=== PATIENT | female | born 1980 | race Caucasian/White ===

== ENCOUNTER → 2019-10-09 | Outpatient (CLI) | payer SELFPAY ==
[2019-10-09 09:09] VITALS: BMI 43.9
[2019-10-11 22:37] LABS: HPV Reflexed? NOT INDICATED
== END | disposition home or self-care (01) ==
LOC: LABSPEC 09:41
PROVIDERS: PCP Family Medicine; Referring Provider Family Medicine; Visit Provider Family Medicine
DX: Z13.9 Encounter for screening, unspecified (principal)
CPT/HCPCS: 88175; G0145

== ENCOUNTER → 2020-04-01 | Outpatient (CLI) | payer SELFPAY ==
[2020-04-01 09:15] VITALS: BMI 43.9
[2020-04-01 12:56] LABS: AST(SGOT) 37 U/L (15-37); Alanine Aminotransfer ALT/SGPT 61 U/L (13-56); Albumin, Serum 3.8 g/dL (3.2-5.0); Alkaline Phosphatase 80 U/L (45-117); Anion Gap 7 (5-15); BUN 11 mg/dL (7-18); BUN/Creat Ratio 14.2 RATIO (10-20); Chloride 103 mmol/L (98-107); Cholesterol 209 mg/dL (200); Creatinine, Serum 0.78 mg/dL (0.55-1.02); EST Glomerular Filtration Rate 87 mL/min (>60); Est Glom Filt Rate - Afr Amer 106 mL/min (>60); Glucose 88 mg/dL (74-106); High Density Lipoprotein 43 mg/dL; Potassium 4.1 mmol/L (3.5-5.1); Protein, Total 7.8 g/dL (6.4-8.2); Sodium Level 137 mmol/L (136-145); Thyroid Stim Hormone (TSH) 1.51 uIU/mL (0.358-3.74); Triglycerides 151 mg/dL; Very Low Density Lipoprotein 30 mg/dL (5-40)
== END | disposition home or self-care (01) ==
PROVIDERS: PCP Family Medicine; Referring Provider Family Medicine; Visit Provider Family Medicine
DX: E66.9 Obesity, unspecified (principal)
CPT/HCPCS: 36415; 80053; 80061; 84443

== ENCOUNTER → 2020-12-07 10:44 | Outpatient (CLI) | payer SELFPAY ==
[2020-11-11 09:39] VITALS: BMI 43.5
--- NOTE | 2020-12-07 10:49 | BI_ITS ---
MAMMOGRAPHY - BILATERAL SCREENING 3-D TOMOSYNTHESIS REASON FOR EXAM: Female, 40 years old. screening PERTINENT HISTORY: No significant family history. TECHNIQUE: 2-D mammograms and 3-D Tomosynthesis of the breast (s) were performed. CAD was performed. COMPARISON: None. Baseline examination. FINDINGS: The breast composition is composed of scattered fibroglandular density. Scattered benign calcifications are seen. No dense spiculated masses or suspicious microcalcifications are identified. No architectural distortion is identified. There is no skin thickening or retraction. BI/SCRN MAMM (CAD)W/JASMYN BILAT IMPRESSION: No mammographic signs of malignancy. Routine yearly mammograms recommended. ASSESSMENT CATEGORY: BIRADS Category 1: Negative. A letter regarding these results will be sent to the patient by the facility within 30 days. FOLLOW UP RECOMMENDATION: Yearly follow up mammogram recommended. (A) Approximately 10% of breast cancers are not detected by mammography. A normal mammogram should not delay biopsy of a clinically suspicious abnormality. Electronically Signed: Jong Saldaña MD at 11:55 EDT , Service support ,
== END ==
PROVIDERS: PCP Family Medicine; Referring Provider Family Medicine; Visit Provider Family Medicine
DX: Z12.31 Encounter for screening mammogram for malignant neoplasm of breast (principal)
CPT/HCPCS: 77063; 77067

== ENCOUNTER → 2022-11-09 | Outpatient (CLI) | payer SELFPAY ==
[2022-11-09 16:41] LABS: Absolute Neutrophil Count 4.2 X10^3/uL (2.0-7.7); Basophil# 0.04 X10^3/uL; Basophil% 0.5 % (0-1); Eosinophil# 0.54 X10^3/uL; Eosinophils% 6.6 % (0-5); Hematocrit 40.8 % (37-47); Hemoglobin 13.8 g/dL (12.0-15.0); Lymphocyte % 35.2 % (19-41); Mean Corp Hgb Conc 33.8 g/dL (32-36); Mean Corpuscular Hgb 28.3 pg (27.0-32.0); Mean Corpuscular Volume 83.8 fL (81-99); Monocyte# 0.58 X10^3/uL; NRBC Flagged by Analyzer 0 % (0-5); Neutrophil # 4.15 X10^3/uL (2.7-7.7); Neutrophil % 50.5 % (47-70); Platelet Count 268 K/mm3 (150-450); RBC Distribution Width CV 13.7 % (11.6-14.6); RBC Distribution Width SD 41.9 fl (35.1-43.9); Red Blood Count 4.87 M/mm3 (4.2-5.4); White Blood Count 8.2 K/mm3 (4.4-11.0)
[2022-11-09 17:04] LABS: ALB/GLOB Ratio 0.9 RATIO (0.9-2.4); AST(SGOT) 46 U/L (15-37); Alanine Aminotransfer ALT/SGPT 71 U/L (13-56); Albumin, Serum 3.8 g/dL (3.2-5.0); Alkaline Phosphatase 79 U/L (45-117); Anion Gap 3 (5-15); BUN 12 mg/dL (7-18); BUN/Creat Ratio 16.4 RATIO (10-20); Chloride 105 mmol/L (98-107); Cholesterol 224 mg/dL (200); Creatinine, Serum 0.73 mg/dL (0.55-1.02); EST Glomerular Filtration Rate 93 mL/min (>60); Est Glom Filt Rate - Afr Amer 112 mL/min (>60); Globulin 4.1 g/dL (2.2-4.2); Glucose 89 mg/dL (74-106); High Density Lipoprotein 41 mg/dL; Potassium 3.6 mmol/L (3.5-5.1); Protein, Total 7.9 g/dL (6.4-8.2); Sodium Level 135 mmol/L (136-145); Thyroid Stim Hormone (TSH) 1.41 uIU/mL (0.358-3.74); Triglycerides 213 mg/dL; Very Low Density Lipoprotein 43 mg/dL (5-40)
== END | disposition home or self-care (01) ==
LOC: BIMLAB 15:15
PROVIDERS: PCP Family Medicine; Referring Provider Nurse Practitioner Family; Visit Provider Nurse Practitioner Family
DX: Z00.00 Encounter for general adult medical examination without abnormal findings (principal); F32.9 Major depressive disorder, single episode, unspecified
CPT/HCPCS: 36415; 80053; 80061; 84443; 85025

== ENCOUNTER → 2022-12-14 | Outpatient (CLI) | payer SELFPAY ==
[2022-12-14 12:49] LABS: Anion Gap 7 (5-15); BUN 13 mg/dL (7-18); BUN/Creat Ratio 17.3 RATIO (10-20); Calcium,Total 9.3 mg/dL (8.5-10.1); Chloride 104 mmol/L (98-107); Creatinine, Serum 0.75 mg/dL (0.55-1.02); EST Glomerular Filtration Rate 90 mL/min (>60); Est Glom Filt Rate - Afr Amer 109 mL/min (>60); Glucose 95 mg/dL (74-106); Sodium Level 139 mmol/L (136-145)
== END | disposition home or self-care (01) ==
PROVIDERS: PCP Family Medicine; Referring Provider Nurse Practitioner Family; Visit Provider Nurse Practitioner Family
DX: I10 Essential (primary) hypertension (principal)
CPT/HCPCS: 36415; 80048

== ENCOUNTER → 2023-06-14 | Outpatient (CLI) | payer SELFPAY ==
--- NOTE | 2023-06-14 08:17 | BI_ITS ---
MAMMOGRAPHY - BILATERAL SCREENING REASON FOR EXAM: Female, 43 years old. Routine annual screening examination. PERTINENT HISTORY: Non-contributory. TECHNIQUE: Digital bilateral breast jasmyn (3D mammographic acquisition) in the CC and MLO projections. 2-D mediolateral oblique (MLO) and craniocaudad (CC) views of both breasts were obtained. CAD: Full Field Digital Mammography with Computer Added Detection was performed. COMPARISON: Comparison is made with prior study dated December 07, 2020. FINDINGS: Breast Composition: There are scattered areas of fibroglandular density. There are no dominant masses or suspicious calcifications. Stable benign appearing bilateral axillary lymph nodes. No other significant abnormalities are identified. There has been no significant change since the prior study. BI/SCRN MAMM (CAD)W/JASMYN BILAT IMPRESSION: Stable bilateral screening mammogram. Yearly follow-up mammogram recommended. (A) ASSESSMENT CATEGORY: BIRADS Category 2: Benign. A letter regarding these results will be sent to the patient by the facility within 30 days. Approximately 10% of breast cancers are not detected by mammography. A normal mammogram should not delay biopsy of a clinically suspicious abnormality. [id number] Electronically Signed: Isauro Maradiaga MD at 14:22 EST ,
== END | disposition home or self-care (01) ==
PROVIDERS: PCP Family Medicine; Referring Provider Family Medicine; Visit Provider Family Medicine
DX: Z12.31 Encounter for screening mammogram for malignant neoplasm of breast (principal)
CPT/HCPCS: 77063; 77067

== ENCOUNTER → 2023-11-29 | Outpatient (CLI) | payer SELFPAY ==
[2023-11-29 12:57] LABS: ALB/GLOB Ratio 0.9 RATIO (0.9-2.4); AST(SGOT) 22 U/L (15-37); Alanine Aminotransfer ALT/SGPT 32 U/L (13-56); Albumin, Serum 3.7 g/dL (3.2-5.0); Alkaline Phosphatase 65 U/L (45-117); Anion Gap 7 (5-15); BUN 13 mg/dL (7-18); BUN/Creat Ratio 16.8 RATIO (10-20); Calcium,Total 9.1 mg/dL (8.5-10.1); Chloride 104 mmol/L (98-107); Cholesterol 224 mg/dL (200); Creatinine, Serum 0.77 mg/dL (0.55-1.02); EST Glomerular Filtration Rate 86 mL/min (>60); Est Glom Filt Rate - Afr Amer 104 mL/min (>60); Globulin 4.1 g/dL (2.2-4.2); Glucose 100 mg/dL (74-106); High Density Lipoprotein 51 mg/dL; Potassium 4.1 mmol/L (3.5-5.1); Protein, Total 7.8 g/dL (6.4-8.2); Sodium Level 137 mmol/L (136-145); Triglycerides 146 mg/dL; Very Low Density Lipoprotein 29 mg/dL (5-40)
== END | disposition home or self-care (01) ==
LOC: BIMLAB 08:59
PROVIDERS: PCP Family Medicine; Visit Provider Family Medicine
DX: I10 Essential (primary) hypertension (principal)
CPT/HCPCS: 36415; 80053; 80061

== ENCOUNTER → 2024-05-28 | Outpatient (CLI) | payer BC, SELFPAY ==
[2024-06-03 14:09] LABS: HPV APTIMA, High Risk Negative (Negative)
== END | disposition home or self-care (01) ==
LOC: LABSPEC 09:39
PROVIDERS: PCP Family Medicine; Referring Provider Family Medicine; Visit Provider Family Medicine
DX: Z01.419 Encounter for gynecological examination (general) (routine) without abnormal findings (principal)
CPT/HCPCS: 87624; 88142

== ENCOUNTER → 2024-06-26 | Outpatient (CLI) | payer BC, SELFPAY ==
--- NOTE | 2024-06-26 10:05 | BI_ITS ---
MAMMOGRAPHY - BILATERAL SCREENING REASON FOR EXAM: Female, 44 years old. Routine annual screening examination. PERTINENT HISTORY: Non-contributory. TECHNIQUE: Digital bilateral breast jasmyn (3D mammographic acquisition) in the CC and MLO projections. 2-D mediolateral oblique (MLO) and craniocaudad (CC) views of both breasts were obtained. CAD: Full Field Digital Mammography with Computer Added Detection was performed. COMPARISON: Comparison is made with prior study dated June 14, 2023 and December 07, 2020. FINDINGS: Breast Composition: There are scattered areas of fibroglandular density. There are no dominant masses or suspicious calcifications. Stable small bilateral axillary lymph nodes. No other significant abnormalities are identified. There has been no significant change since the prior study. BI/SCRN MAMM (CAD)W/JASMYN BILAT IMPRESSION: Stable bilateral screening mammogram. Yearly follow-up mammogram recommended. (A) ASSESSMENT CATEGORY: BIRADS Category 2: Benign. A letter regarding these results will be sent to the patient by the facility within 30 days. Approximately 10% of breast cancers are not detected by mammography. A normal mammogram should not delay biopsy of a clinically suspicious abnormality. [id number] Electronically Signed: Isauro Maradiaga MD at 10:58 EST ,
== END | disposition home or self-care (01) ==
PROVIDERS: PCP Family Medicine; Referring Provider Family Medicine; Visit Provider Family Medicine
DX: Z12.31 Encounter for screening mammogram for malignant neoplasm of breast (principal)
CPT/HCPCS: 77063; 77067

== ENCOUNTER → 2024-11-26 | Outpatient (CLI) | payer BC, SELFPAY ==
[2024-11-26 13:16] LABS: ALB/GLOB Ratio 1.2 RATIO (0.9-2.4); AST(SGOT) 30 U/L (<=31); Alanine Aminotransfer ALT/SGPT 34 U/L (<=34); Albumin, Serum 4.4 g/dL (3.5-5.0); Alkaline Phosphatase 77 U/L (35-104); Anion Gap 12 (5-15); BUN 14 mg/dL (4-19); Calcium,Total 9.6 mg/dL (7.6-11.0); Carbon Dioxide 25.3 mmol/L (21.0-32.0); Chloride 102 mmol/L (98-108); Cholesterol 247 mg/dL (<=200); EST Glomerular Filtration Rate 93 (>60); Globulin 3.6 g/dL (2.2-4.2); Glucose 99 mg/dL (70-99); High Density Lipoprotein 49 mg/dL; Low Density Lipoprotein Calc. 169 mg/dL; Potassium 4.6 mmol/L (3.3-5.1); Sodium Level 140 mmol/L (133-145); Total Bilirubin 0.55 mg/dL (0.00-1.30); Triglycerides 144 mg/dL; Very Low Density Lipoprotein 29 mg/dL (5-40); cholesterol:hdl ratio screen 5.01
== END | disposition home or self-care (01) ==
LOC: BIMLAB 09:28
PROVIDERS: PCP Family Medicine; Visit Provider Family Medicine
DX: E78.5 Hyperlipidemia, unspecified (principal); I10 Essential (primary) hypertension
CPT/HCPCS: 36415; 80053; 80061

== ENCOUNTER → 2025-05-23 | Outpatient (CLI) | payer BC, SELFPAY ==
[2025-05-23 11:21] LABS: Cholesterol 141 mg/dL (<=200); Low Density Lipoprotein Calc. 78 mg/dL; Triglycerides 104 mg/dL; Very Low Density Lipoprotein 21 mg/dL (5-40); cholesterol:hdl ratio screen 3.23
== END | disposition home or self-care (01) ==
LOC: LAB 10:13
PROVIDERS: PCP Family Medicine; Referring Provider Family Medicine; Visit Provider Family Medicine
DX: E78.5 Hyperlipidemia, unspecified (principal)
CPT/HCPCS: 36415; 80061

== ENCOUNTER 2025-06-27 06:27 | Day surgery (SDC) | payer BC, SELFPAY ==
[2025-06-27] VITALS (8 sets, daily range): BP systolic 100–126; BP diastolic 59–82; PULSE 71–90; RESP 12–18; TEMP 36.6–37.2; O2SAT 97–100; BMI 43.7
--- OUTSIDE RECORDS SUMMARY | 2025-06-27 06:30 | XMS RPT_ITS | CCD ---
Author Organization [facility] ion Partnership [facility] Care Team Providers Care Customer Development Manager Name Role Phone Dr. Bob Marcano Primary Care Provider [phone] Dr. Bob Marcano Referring Provider [phone] Rosa PLANT MAINTENANCE TECHNICIAN, JAIC Kt Attending Provider [phone] Dr. Bob Marcano Primary Care Provider [phone] Dr. Bob Marcano Attending Provider [phone] Dr. Bob Marcano Referring Provider [phone] Dr. Bob Marcano DO Primary Care Provider [phone] Dr. Bob Marcano DO Attending Provider [phone] Dr. Bob Marcano DO Referring Provider [phone] Bob Marcano Primary Care Unavailable Bob Marcano Attending Unavailable Bob Marcano Primary Care Unavailable Bob Marcano Attending Unavailable Jeet, Bob Ferrer Referring Unavailable Jeet, Bob R Referring Unavailable Brown, Bob R Primary Care Unavailable Brown, Bob R Attending Unavailable Jeet, Bob R Referring Unavailable Brown, Bob R Primary Care Unavailable BrownBob R Attending Unavailable Jeet, Bob R Primary Care Unavailable Brown, Bob R Attending Unavailable Bob Marcano Referring Unavailable Medications Current Medications Medication Drug Class(es) Dates Sig (Normalized) Sig (Original) [id number] 200 actuat albuterol 0.09 mg/actuat metered dose inhaler (12 sources) beta2-Adrenergic Agonist Start: 10-09-2019 End: 11-09-2022 Albuterol Sulfate (Ventolin Hfa) 90 mcg/actuation HFA aerosol inhaler Active 2 NMA INHALATION EVERY 6 HOURS as needed for shortness of breath or wheezing 8.November 09, 2022 3:11pm Start: 10-09-2019 End: 11-09-2022 take 1 puff(s) by inhalation every six hours Albuterol Sulfate (Ventolin Hfa) 90 mcg/actuation HFA aerosol inhaler Discontinued 2 PUFF INHALATION EVERY 6 HOURS 8.5 October 11, 2019 10:26am November 09, 2022 2:11pm Start: 11-02-2015 End: 09-19-2019 Albuterol Sulfate 1 PUFF inh aler Discontinued 2 NMA INHALATION EVERY 6 HOURS NEEDED as needed for Shortness Of Breath November 02, 2015 12:00am September 19, 2019 4:19pm Start: 11-02-2015 End: 09-19-2019 take 1 puff(s) by inhalation every six hours as needed Albuterol Sulfate Discontinued 2 PUFF INHALATION EVERY 6 HOURS NEEDED November 01, 2015 11:00pm September 19, 2019 3:19pm hydroCHLOROthiazide 12.5 mg / lisinopril 20 mg oral tablet (8 sources) Thiazide Diuretic, Angiotensin Converting Enzyme Inhibitor Start: 05-30-2023 End: 09-03-2024 Lisinopril-Hydrochlorothiazi de 20-12.5 mg tablet Active 1 {tbl} PO DAILY September 03, 2024 9:25am Start: 05-30-2023 take 1 tablet by el th once daily Lisinopril-Hydrochlorothiazide Active 1 TABLET PO DAILY May 30, 2023 12:00am Start: 11-23-2022 End: 05-30-2023 Lisinopril-Hydrochlorothiazi de 10-12.5 mg tablet Discontinued 1 {tbl} PO DAILY November 23, 2022 11:14am May 30, 2023 4:35pm Start: 11-23-2022 End: 05-30-2023 take 1 tablet by mouth once daily Lisinopril-Hydrochlorothiazide Discontin ued 1 TABLET PO DAILY November 23, 2022 10:14am May 30, 2023 3:35pm Completed/Discontinued Medications Medication Drug Class(es) Dates Sig (Normalized) Sig (Original) nitrofurantoin, macrocrystals 25 mg / nitrofurantoin, monohydrate 75 mg oral capsule (6 sources) Nitrofuran Antibacterial Start: 09-19-2019 End: 09-24-2019 take 1 capsule by mouth every twelve hours at mealtime Nitrofurantoin Monohyd/M-Cryst (Macrobid) 100 mg capsule Discontinued 100 mg PO Q12H 10 5 September 19, 2019 1:00am September 23, 2019 1:00am September 24, 2019 1:09am must administer with a meal/food Start: 09-19-2019 End: 10-09-2019 take 1 capsule by mouth twice daily at mealtime Nitrofurantoin Monohyd/M-Cryst (Macrobid) 100 mg capsule Discontinued 100 mg PO TWICE A DAY 10 September 19, 2019 1:00am October 09, 2019 9:04am must administer with a meal/food phenazopyridine hydrochloride 95 mg oral tablet (3 sources) Start: 09-19-2019 End: 10-09-2019 take 1 tablet by mouth three times daily as needed Phenazopyridine (Azo Urinary Pain Relief) 95 mg tablet Discontinued 95 mg PO THREE TIMES A DAY as needed September 19, 2019 1:00am October 09, 2019 9:04am sertraline 100 mg oral tablet (20 sources) Serotonin Reuptake Inhibitor Start: 11-02-2015 End: 09-03-2024 take 1 tablet by mouth once daily Sertraline 100 mg tablet Discontinued 100 mg PO DAILY October 19, 2022 11:40am May 30, 2023 4:42pm Problems Active Problems Problem Classification Problem Date Documented Da te Episodic/Chronic Disorders of lipid metabolism (3 sources) Dyslipidemia; Translations: [Hyperlipidemia, unspecified] Onset: 12-02-2024 11-26-2024 Chronic Essential hypertension (5 sources) Hypertensive disorder; Translations: [Essential (primary) hypertension] Onset: 11-26-2024 12-14-2022 Chronic Mood disorders (6 sources) Depressive disorder; Translations: [Depression] 04-01-2020 Chronic Other nutritional; endocrine; and metabolic disorders (3 sources) Body mass index 30+ - obesity; Translations: [Obesity, unspecified] 04-01-2020 Chronic Residual codes; unclassified (2 sources) Family history of cancer of colon; Translations: [Family history of malignant neoplasm of digestive organs] 11-26-2024 Episodic Unclassified (2 sources) Family history of colon cancer requiring screening colonoscopy; Translations: [Z80.0 - Family history of malignant neoplasm of digestive organs] Urinary tract infections (3 sources) Urinary tract infectious disease; Translations: [Urinary tract infection, site not specified] 09-19-2019 Episodic Past or Other Problems Problem Classification Problem Date Documented Da te Episodic/Chronic Other screening for suspected conditions (not mental disorders or infectious disease) (1 source) Encounter for screening mammogram for malignant neoplasm of breast; Translations: [Encounter for screening mammogram for malignant neoplasm of breast] Onset: 07-25-2024 Episodic Residual codes; unclassified (1 source) Family history of malignant neoplasm of digestive organs; Translations: [Family history of malignant neoplasm of digestive organs] Onset: 11-26-2024 Episodic Results Test Name Value Interpretation Reference Range Facility Internal Medicine Office Vis iton 05-27-2025 Internal Medicine Office Visit [facility] Internal Medicine [address] [place] [address] [place] [address] OFFICE VISIT Date of Service: 05/27/25 MR#: [id number] Acct: [id number] Name: KAILYNJESSICA ESCALANTEYEL Rep #: [id number] : 1980 Provider: Dr. Bob de anda, DO Age/Sex: 45/F [place] [facility] Status: Signed Intake Vital Signs 11/26/24 09:02 05/27/25 09:17 Height 5 ft 3 in 5 ft 3 in Weight: 240 lb 6 oz 242 lb BMI 42.5 42.8 BP 140/82 H 134/82 H Blood Pressure Location Lt brachial Lt brachial Position Sitting Sitting Respiration 16 16 Pulse 98 79 Pulse Source Monitor Monitor Temp 96.7 F L 98.2 F Temp Source Temporal Temporal Pulse Oximetry (%) 98 98 Oxygen Delivery Method room air room air Intake Visit Reasons: 6 M FU Chief Complaint: Routine 6-month recheck. Stock Feeder Required: No Is patient in pain?: No Allergies No Known Allergies Allergy (Verified 05/27/25 09:07) Medications ???Medication ???Instructions ???Recorded ???Confirmed ???Type albuterol sulfate 90 mcg/actuation 2 puff inhalation Q6H PRN 05/27/25 Rx aerosol inhaler (Ventolin HFA) shortness of breath or wheezing #8.5 grams atorvastatin 20 mg tablet (Lipitor) 20 mg PO QDAY #90 tabs 05/27/25 05/27/25 Rx lactobacillus combination no.4 3 3,000 mmu cells PO QDAY 05/27/25 1 07/27/24 History billion cell capsule (Probiotic) lisinopril 20 1 tab PO DAILY #90 tabs 05/27/25 1 07/27/24 Rx mg-hydrochlorothiaz henrique 12.5 mg tablet multivitamin 1 tab PO QAM 05/27/25 05/27/25 His tory sertraline 100 mg tablet 100 mg PO DAILY #90 TABLETS 05/27/25 Rx Nurse's Note: Pt needs refills on zoloft and albuterol inhaler. Pt was told by Dr. petersen office she did not need a colonoscopy until 2025 so she has not scheduled. Pt states that in the past 6 months she has been extra gassy and had mucus. Pt states there is more often than not mucus in stool too. Pt wonders if this is attributed from statin. Pt denies change in color, odor, texture, or frequency. Denies abdominal pain, cramping, nausea/vomiting PFSH Medical History HTN (hypertension) Encounter for preventative adult health care examination Anxiety and depression Asthma Surgical History History of colonoscopy History of History of tonsillectomy Family History Father Colon cancer Hypertension Other Anxiety and depression Social History Smoking Status: Never smoker alcohol intake: never substance use type: does not use what type of physical activity do you participate in: walking frequency: daily Female Reproductive History Menstrual Duration of menses: <3 days control method: other HPI HPI Chief Complaint: Routine 6-month recheck. Details: JESSICA AVINA, is a 45 F who presents to the office today for a recheck physical exam. Her lipids were up and she was started on a statin and she is here for the results of that. She is still struggling with her daughter who has to be homeschooled because of a diagnosis of POTS syndrome. She has been having some stools with mucus in her stools. When I referred her for a colonoscopy they said it was not time for routine colonoscopy. ROS Const Constitutional: No body ache, chills, excessive sweating, fatigue, fever(s), frequent falls, headache(s), snoring, weakness, sleep problems or change in appetite Eyes Eyes: No blurry vision, change in vision, eye pain or Light sensitivity ENT ENT: No abnormal hearing, ear or mastoid pain, tinnitus, nasal congestion, headache(s), neck pain or sore throat Resp Respiratory: No cough, shortness of breath, snoring or wheezing Cardio Cardiology: No chest pain at rest, chest pain with exertion, excessive sweating, shortness of breath, dyspnea on exertion, lightheadedness, orthopnea or palpitations Gastro GI: Positive for excessive flatus; No abdominal pain, change in bowel habits, constipation, cramping, diarrhea, nausea/dyspepsia, vomiting or other Genitourinary-Femal e: No burning urination, painful urination, urinary incontinence, urinary frequency, abnormal vaginal bleeding or pelvic pain Musc Musculoskeletal: No abnormal gait, joint pain, back pain, limited range of motion, neck pain or numbness Skin Skin: No dry skin, redness, lesions, itchy eyes, rash or wounds Neuro Neurology: No abnormal gait, abnormal hearing, weakness, frequent falls, headache(s), memory loss or numbness Psych Psychiatric: No anxiety, No change in appetite, No depression, No memory loss an (more content not included)... Normal [facility] Lipid Profileon 05-23-2025 CHOL:HDL 3.23 Normal [facility] Comment on above: Performed By: #### L 754.1342 #### [facility] [address] [place], [place], [id number] Cholesterol [Mass/Vol] 141 mg/dL Normal <=200 [facility] Comment on above: Result Comment: Chol esterol level, Desirable <200 mg/dL Borderline high cholesterol 200-239 mg/dL High cholesterol >=240 mg/dL Recommendations of the NCEP Adult Treatment Panel for the following risk-cutoff thresholds for the [place] population. Performed By: #### L 500.4100 #### [facility] [address] [place], [address] Cholesterol in HDL [Mass/Vol] 44 mg/dL Normal [facility] Comment on above: Result Comment: Bonnie onal Cholesterol Education Program (NCEP) guidelines: <40 mg/dL: Low HDL-cholesterol (major risk factor for CHD) >= 60 mg/dL: High HDL-cholesterol (negative risk factor for CHD) HDL-cholesterol is affected by a number of factors, e.g. smoking, exercise, hormones, sex and age. Performed By: #### L 500.4100 #### [facility] [address] [place], [address] Cholesterol in LDL [Mass/Vol] 78 mg/dL Normal [facility] Comment on above: Result Comment: Bord cgrise=952-402 mg/dL Higher Napf=195 mg/dL or greater Singh Equation 2020 for LDL-C Performed By: #### L 500.4100 #### [facility] [address] [place], [address] Cholesterol in VLDL [Mass/Vol] 21 mg/dL Normal 5-40 [facility] Comment on above: Performed By: #### L 500.4100 #### [facility] [address] [place], [address] Triglyceride [Mass/Vol] 104 mg/dL Normal [facility] Comment on above: Result Comment: The drugs N-Acetylcysteine and Metamizole may falsely depress this assay. Normal range: <150 mg/dL Borderline High: 150-199 mg/dL High: 200-499 mg/dL Very High: >500 mg/dL Performed By: #### L 500.4100 #### [facility] [address] [place], [address] Anion gap in Serum or Plasma Ordered By: Bob Marcano on 11-26-2024 Anion gap [Moles/Vol] 12 mmol/L 5-15 [facility] BUN/creatinine ratioOrdered By: Bob Marcano on 11-26-2024 Urea nitrogen/Creatinine [Mass ratio] 17.0 mg/mg 10-20 [facility] Bilirubin, totalOrdered By: Bob Marcano on 11-26-2024 Bilirubin [Mass/Vol] 0.55 mg/dL 0.00-1.30 [facility] Calculated very low density lipoprotein (VLDL) cholesterol measurementOrdered By: Bob Marcano on 11-26-2024 Calculated very low density lipoprotein (VLDL) cholesterol measurement 29 mg/dL 5-40 [facility] Carbon dioxide, total [Moles /volume] in Central venous bloodOrdered By: Bob Marcano on 11-26-2024 CO2 [Moles/Vol] 25.3 mmol/L 21.0-32.0 [facility] Chloride assayOrdered By: Do laura Marcano on 11-26-2024 Chloride [Moles/Vol] 102 mmol/L 98-108 [facility] Comprehensive Metabolic Prof ilon 11-26-2024 Albumin [Mass/Vol] 4.4 g/dL Normal 3.5-5.0 [facility] Comment on above: Performed By: #### L 500.4100, L500.4050 #### [facility] [address] [place], [address] Albumin/Globulin [Mass ratio] 1.2 {ratio} Normal 0.9-2.4 [facility] Comment on above: Performed By: #### L 500.4100, L500.4050 #### [facility] [address] [place], [address] ALK PHOS 77 U/L Normal 35-104 [facility] Comment on above: Performed By: #### L 500.4100, L500.4050 #### [facility] [address] [place], [address] ALT [Catalytic activity/Vol] 34 U/L Normal <=34 [facility] Comment on above: Performed By: #### L 500.4100, [id number] #### [facility] [address] [place], [address] AST [Catalytic activity/Vol] 30 U/L Normal <=31 [facility] Comment on above: Performed By: #### L 500.4100, [id number] #### [facility] [address] [place], [address] Bilirubin [Mass/Vol] 0.55 mg/dL Normal 0.00-1.30 [facility] Comment on above: Performed By: #### L 500.4100, L500.4050 #### [facility] [address] [place], [address] BUN/CRE 17.0 RATIO Normal 10-20 [facility] Comment on above: Performed By: #### L 500.4100, L500.4050 #### [facility] [address] [place], [address] Calcium [Mass/Vol] 9.6 mg/dL Normal 7.6-11.0 [facility] Comment on above: Performed By: #### L 500.4100, [id number] #### [facility] [address] [place], [address] Chloride [Moles/Vol] 102 mmol/L Normal 98-108 [facility] Comment on above: Performed By: #### L 500.4100, L500.4050 #### [facility] [address] [place], [address] CO2 [Moles/Vol] 25.3 mmol/L Normal 21.0-32.0 [facility] Comment on above: Performed By: #### L 500.4100, L500.4050 #### [facility] [address] [place], [address] Creatinine [Mass/Vol] 0.80 mg/dL Normal 0.70-1.20 [facility] Comment on above: Performed By: #### L 500.4100, L500.4050 #### [facility] [address] [place], [address] GAP 12 Normal 5-15 [facility] Comment on above: Performed By: #### L 500.4100, L500.4050 #### [facility] [address] [place], [address] GFR/1.73 sq M.predicted among non-blacks MDRD (S/P/Bld) [Vol rate/Area] 93 mL/min/{1.73_m2} Normal >60 [facility] Comment on above: Result Comment: mL/m in/1.73m2 CKD-EPI Creatinine Equation (2020) Performed By: #### L 500.4100, L500.4050 #### [facility] [address] [place], [address] Globulin (S) [Mass/Vol] 3.6 g/dL Normal 2.2-4.2 [facility] Comment on above: Performed By: #### L 500.4100, L500.4050 #### [facility] [address] [place], [address] Glucose [Mass/Vol] 99 mg/dL Normal 70-99 [facility] Comment on above: Performed By: #### L 500.4100, L500.4050 #### [facility] [address] [place], [address] Potassium [Moles/Vol] 4.6 mmol/L Normal 3.3-5.1 [facility] Comment on above: Performed By: #### L 500.4100, L500.4050 #### [facility] [address] [place], [address] Sodium [Moles/Vol] 140 mmol/L Normal 133-145 [facility] Comment on above: Performed By: #### L 500.4100, L500.4050 #### [facility] [address] [place], [address] T PROT 8.0 g/dL Normal 5.9-8.4 [facility] Comment on above: Performed By: #### L 500.4100, [id number] #### [facility] [address] [place], [address] Urea nitrogen [Mass/Vol] 14 mg/dL Normal 4-19 [facility] Comment on above: Performed By: #### L 500.4100, [id number] #### [facility] [address] [place], [address] Glomerular filtration rate ( GFR) estimation/1.73 sq m using serum, plasma, or whole bOrdered By: Bob Marcano on 11-26-2024 GFR/1.73 sq M.predicted among non-blacks MDRD (S/P/Bld) [Vol rate/Area] 93 mL/min/{1.73_m2} >60 [facility] Comment on above: mL/min/1.73m2 CKD-EP I Creatinine Equation (2020) Internal Medicine Office Vis frances 11-26-2024 Internal Medicine Office Visit [facility] [address] [place], [place] [address] OFFICE VISIT Date of Service: 11/26/24 MR#: [id number] Acct: [id number] Name: JESSICA AVINA Rep #: [id number] : 1980 Provider: Dr. Bob de anda, DO Age/Sex: 44/F [place] [facility] Status: Signed Intake Vital Signs 05/28/24 09:07 11/26/24 09:02 Height 5 ft 3 in 5 ft 3 in Weight: 237 lb 4 oz 240 lb 6 oz BMI 42.0 42.5 BP 124/82 H 140/82 H Blood Pressure Location Lt brachial Lt brachial Position Sitting Sitting Respiration 16 16 Pulse 102 H 98 Pulse Source Monitor Monitor Temp 97.2 F L 96.7 F L Temp Source Temporal Temporal Pulse Oximetry (%) 99 98 Oxygen Delivery Method room air room air Intake Visit Reasons: 6 M FU Chief Complaint: 6 M FU Stock Feeder Required: No Accompanied by: Self Is patient in pain?: No Allergies No Known Allergies Allergy (Verified 11/26/24 09:01) Medications ???Medication ???Instructions ???Recorded ???Confirmed ???Type albuterol sulfate 90 mcg/actuation 2 puff inhalation Q6H PRN 11/26/24 Rx aerosol inhaler (Ventolin HFA) shortness of breath or wheezing #8.5 grams lisinopril 20 1 tab PO DAILY #90 tabs 09/03/24 0 11/26/24 Rx mg-hydrochlorothiaz henrique 12.5 mg tablet sertraline 100 mg tablet 100 mg PO DAILY #90 tabs 09/03/24 11/26/24 Rx Have you fallen in the past year?: No PFSH Medical History HTN (hypertension) Encounter for preventative adult health care examination Anxiety and depression Asthma Surgical History History of colonoscopy History of History of tonsillectomy Family History Father Colon cancer Hypertension Other Anxiety and depression Social History Smoking Status: Never smoker alcohol intake: never substance use type: does not use what type of physical activity do you participate in: walking frequency: daily Female Reproductive History Menstrual Duration of menses: <3 days control method: other HPI HPI Chief Complaint: 6 M FU Details: JESSICA AVINA, is a 44 F who presents to the office today for his 6-month checkup so she can have her medications renewed especially her sertraline. She has a lot of challenges in life she has a daughter with dysautonomia and she struggles helping her cope with those challenges. Other than that she feels well she says it has been almost 10 years since she had a colonoscopy and with her father's history of colorectal cancer she wants another screening colonoscopy. ROS Const Constitutional: No body ache, excessive sweating, fatigue, fever(s), frequent falls, headache(s), snoring, weakness, weight change, sleep problems or change in appetite Eyes Eyes: No blurry vision, change in vision, eye pain or Light sensitivity ENT ENT: No abnormal hearing, ear or mastoid pain, tinnitus, nasal congestion, headache(s), neck pain or sore throat Resp Respiratory: No cough, shortness of breath, snoring or wheezing Cardio Cardiology: No chest pain at rest, chest pain with exertion, excessive sweating, shortness of breath, dyspnea on exertion, lightheadedness, orthopnea or palpitations Gastro GI: No abdominal pain, change in bowel habits, constipation, cramping, diarrhea, nausea/dyspepsia or vomiting Genitourinary-Femal e: No burning urination, painful urination, urinary incontinence, urinary frequency, blood in urine, abnormal periods or pelvic pain Musc Musculoskeletal: No abnormal gait, joint pain, back pain, limited range of motion, neck pain, numbness, stiffness, tingling or Arthritis Skin Skin: No dry skin, redness, lesions, itchy eyes, rash or wounds Neuro Neurology: No abnormal gait, abnormal hearing, abnormal speech, dizziness, weakness, frequent falls, headache(s), memory loss, numbness or tingling Psych Psychiatric: No anxiety, No change in appetite, No depression, No memory loss and No Thoughts of harming yourself/Others Endo Endocrine: No cold intolerance, excessive sweating, fatigue, flushing, heat intolerance, increased thirst/drinking, increased hunger or weight change Aller/Imm Allergy/Immunologic : No itchy eyes, seasonal allergy symptoms, hives or wheezing Kurt/Lymp Hematologic/Lymphat ic: No easy bleeding, easy bruising or enlarged lymph nodes Exam Const General: cooperative, comfortable and no acute distress Nutritional Appearance: well nourished and obese Orientation: alert and oriented x3 Limitations: mental status not altered [facility] Head: normal to inspection Ears: hearing grossly normal bilaterally Nose: external nose normal Eyes General: ap (more content not included)... Normal [facility] LDL calc ser/plasOrdered By: Bob Marcano on 11-26-2024 Cholesterol in LDL [Mass/Vol] 169 mg/dL [facility] Comment on above: Hxqoqojzjs=181-173 m g/dL & Higher Gubn=333 mg/dL or greater Laboratory - Chemistry and C hemistry - challengeOrdered By: Bob Marcano on 11-26-2024 AST [Catalytic activity/Vol] 30 U/L <32 [facility] Lipid Profileon 11-26-2024 CHOL:HDL 5.01 Normal [facility] Comment on above: Performed By: #### L 500.4100, L500.4050 #### [facility] [address] [place], [address] Cholesterol [Mass/Vol] 247 mg/dL High <=200 [facility] Comment on above: Result Comment: Chol esterol level, Desirable <200 mg/dL Borderline high cholesterol 200-239 mg/dL High cholesterol >=240 mg/dL Recommendations of the NCEP Adult Treatment Panel for the following risk-cutoff thresholds for the [place] population. Performed By: #### L 500.4100, L500.4050 #### [facility] [address] [place], [address] Cholesterol in HDL [Mass/Vol] 49 mg/dL Normal [facility] Comment on above: Result Comment: Bonnie onal Cholesterol Education Program (NCEP) guidelines: <40 mg/dL: Low HDL-cholesterol (major risk factor for CHD) >= 60 mg/dL: High HDL-cholesterol (negative risk factor for CHD) HDL-cholesterol is affected by a number of factors, e.g. smoking, exercise, hormones, sex and age. Performed By: #### L 500.4100, L500.4050 #### [facility] [address] [place], [address] Cholesterol in LDL [Mass/Vol] 169 mg/dL Normal [facility] Comment on above: Result Comment: Bord euexwx=589-465 mg/dL Higher Puqh=950 mg/dL or greater Performed By: #### L 500.4100, L500.4050 #### [facility] [address] [place], [address] Cholesterol in VLDL [Mass/Vol] 29 mg/dL Normal 5-40 [facility] Comment on above: Performed By: #### L 500.4100, L500.4050 #### [facility] [address] [place], [address] Triglyceride [Mass/Vol] 144 mg/dL Normal [facility] Comment on above: Result Comment: The drugs N-Acetylcysteine and Metamizole may falsely depress this assay. Normal range: <150 mg/dL Borderline High: 150-199 mg/dL High: 200-499 mg/dL Very High: >500 mg/dL Performed By: #### L 500.4100, L500.4050 #### [facility] [address] [place], [address] Potassium measurement (mass/ volume)Ordered By: Bob Marcano on 11-26-2024 Potassium (Unsp spec) [Mass/Vol] 4.6 mmol/L 3.3-5.1 [facility] Screening total cholesterol/ high density lipoprotein (HDL) cholesterol ratioOrdered By: Bob Marcano on 11-26-2024 Cholesterol.total/Sandra sterol in HDL [Mass ratio] 5.01 {ratio} [facility] Serum creatinine measurement (mass/volume)Ordered By: Bob Marcano on 11-26-2024 Creatinine [Mass/Vol] 0.80 mg/dL 0.70-1.20 [facility] Serum globulin measurementOr dered By: Bob Marcano on 11-26-2024 Globulin (S) [Mass/Vol] 3.6 g/dL 2.2-4.2 [facility] Serum glucose measurement (m ass/volume)Ordered By: Bob Marcano on 11-26-2024 Glucose [Mass/Vol] 99 mg/dL 70-99 [facility] Serum or plasma alanine stearns otransferase (ALT) measurementOrdered By: Bob Marcano on 11-26-2024 ALT [Catalytic activity/Vol] 34 U/L <35 [facility] Serum or plasma albumin janette urement (mass/volume)Ordered By: Bob Marcano on 11-26-2024 Albumin [Mass/Vol] 4.4 g/dL 3.5-5.0 [facility] Serum or plasma albumin/glob ulin mass ratioOrdered By: Bob Marcano on 11-26-2024 Albumin/Globulin [Mass ratio] 1.2 {ratio} 0.9-2.4 [facility] Serum or plasma alkaline cholo sphatase measurementOrdered By: Bob Marcano on 11-26-2024 ALP [Catalytic activity/Vol] 77 U/L 35-104 [facility] Serum or plasma calcium janette urement (mass/volume)Ordered By: Bob Marcano on 11-26-2024 Calcium [Mass/Vol] 9.6 mg/dL 7.6-11.0 [facility] Serum or plasma cholesterol in HDL measurement (mass/volume)Ordered By: Bob Marcano on 11-26-2024 Cholesterol in HDL [Mass/Vol] 49 mg/dL >40 [facility] Comment on above: National Cholesterol Education Program (NCEP) guidelines:<40 mg/dL: Low HDL-cholesterol (major risk factor for CHD)>= 60 mg/dL: High HDL-cholesterol (negative risk factor for CHD)HDL-cholesterol is affected by a number of factors, e.g. smoking, exercise, hormones, sex and age. Serum or plasma cholesterol measurement (mass/volume)Ordered By: Bob Marcano on 11-26-2024 Cholesterol [Mass/Vol] 247 mg/dL High <201 [facility] Comment on above: Cholesterol level, D esirable <200 mg/dLBorderline high cholesterol 200-239 mg/dLHigh cholesterol >=240 mg/dLRecommendations of the NCEP Adult Treatment Panel for the following risk-cutoff thresholds for the [place] population. Serum or plasma urea nitroge n measurement (mass/volume)Ordered By: Bob Marcano on 11-26-2024 Urea nitrogen [Mass/Vol] 14 mg/dL 4-19 [facility] Sodium levelOrdered By: Erick Marcano on 11-26-2024 Sodium [Moles/Vol] 140 mmol/L 133-145 [facility] Total proteinOrdered By: Fabby Marcano on 11-26-2024 Protein [Mass/Vol] 8.0 g/dL 5.9-8.4 [facility] Triglycerides measurementOrd ered By: Bob Marcano on 11-26-2024 Triglyceride [Mass/Vol] 144 mg/dL <[address] [facility] Comment on above: The drugs N-Acetylcy steine and Metamizole may falsely depress this assay. Normal range: <150 mg/dLBorderline High: 150-199 mg/dLHigh: 200-499 mg/dLVery High: >500 mg/dL SCRN MAMM (CAD)W/JASMYN BILATo n 06-26-2024 SCRN MAMM (CAD)W/JASMYN BILAT [facility] Imaging Services [address] [place], [place] [address] SCRN MAMM (CAD)W/JASMYN BILAT MR#: [id number] Acct: [id number] Name: JESSICA AVINA Rep #: [id number] : 1980 F 44 From: Isauro byrne MD PCP: Dr. Bob Marcano, Status: [facility] Study: SCRN MAMM (CAD)W/JASMYN BILAT Date of Exam: 11/14 Exam# [id number] Ordering Dr: Bob Marcano DO -[id number] MAMMOGRAPHY - BILATERAL SCREENING REASON FOR EXAM: Female, 44 years old. Routine annual screening examination. PERTINENT HISTORY: Non-contributory. TECHNIQUE: Digital bilateral breast jasmyn (3D mammographic acquisition) in the CC and MLO projections. 2-D mediolateral oblique (MLO) and craniocaudad (CC) views of both breasts were obtained. CAD: Full Field Digital Mammography with Computer Added Detection was performed. COMPARISON: Comparison is made with prior study dated June 14, 2023 and December 07, 2020. FINDINGS: Breast Composition: There are scattered areas of fibroglandular density. There are no dominant masses or suspicious calcifications. Stable small bilateral axillary lymph nodes. No other significant abnormalities are identified. There has been no significant change since the prior study. BI/SCRN MAMM (CAD)W/JASMYN BILAT IMPRESSION: Stable bilateral screening mammogram. Yearly follow-up mammogram recommended. (A) ASSESSMENT CATEGORY: BIRADS Category 2: Benign. A letter regarding these results will be sent to the patient by the facility within 30 days. Approximately 10% of breast cancers are not detected by mammography. A normal mammogram should not delay biopsy of a clinically suspicious abnormality. [id number] Electronically Signed: Isauro Maradiaga MD at 10:58 EST , CC: Dr. Bob Marcano, Staff Sonographer: Signed Normal [facility] Absolute lymphocyte countOrd ered By: Kt Lee on 11-09-2022 Lymphocytes Auto (Unsp spec) [#/Vol] 2.90 10*3/uL 0.83-4.51 [facility] Basophil percentageOrdered B y: Kt Lee on 11-09-2022 Basophils/100 WBC (Bld) 0.5 % 0-1 [facility] Bilirubin [Mass/Vol] 0.70 mg/dL 0.20-1.00 [facility] Comment on above: For patients on eltr ombopag therapy, use of Dimension [place] TBIL is not recommended. Chloride [Moles/Vol] 105 mmol/L 98-107 [facility] Cholesterol [Mass/Vol] 224 mg/dL <200 [facility] Comment on above: <200 mg/dL Desirable 200-240 mg/dL Borderline >240 mg/dL High Risk Eosinophils/100 WBC (Bld) 6.6 % 0-5 [facility] Glucose [Mass/Vol] 89 mg/dL 74-106 [facility] Neutrophils (Bld) [#/Vol] 4.2 10*3/uL 2.0-7.7 [facility] Neutrophils/100 WBC (Bld) 50.5 % 47-70 [facility] Potassium [Moles/Vol] 3.6 mmol/L 3.5-5.1 [facility] Protein [Mass/Vol] 7.9 g/dL 6.4-8.2 [facility] Sodium [Moles/Vol] 135 mmol/L 136-145 [facility] Triglyceride [Mass/Vol] 213 mg/dL <[address] [facility] Comment on above: The drugs N-Acetylcy steine and Metamizole may falsely depress this assay.Serum Triglycerides Reference Interval Normal <150 mg/dL Borderline high 150 - 199 mg/dL High 200 - 499 mg/dL Very High > or = 500 mg/dL WBC (Bld) [#/Vol] 8.2 10*3/uL 4.4-11.0 [facility] Blood erythrocytes count (nu mber/volume)Ordered By: Kt Lee on 11-09-2022 RBC (Bld) [#/Vol] 4.87 10*6/uL 4.2-5.4 [facility] Blood hemoglobin measurement (mass/volume)Ordered By: Kt Lee on 11-09-2022 Hemoglobin (Bld) [Mass/Vol] 13.8 g/dL 12.0-15.0 [facility] Blood lymphocytes/100 leukoc ytesOrdered By: Kt Lee on 11-09-2022 Lymphocytes/100 WBC (Bld) 35.2 % 19-41 [facility] Blood monocytes/100 leukocyt esOrdered By: Kt Lee on 11-09-2022 Monocytes/100 WBC (Bld) 7.0 % 0-[address] [facility] Blood platelet mean volumeOr dered By: Kt Lee on 11-09-2022 Platelet mean volume (Bld) [Entitic vol] 11.0 fL 6.2-12.0 [facility] Determination of erythrocyte mean corpuscular volume (MCV)Ordered By: Kt Lee on 11-09-2022 MCV (RBC) [Entitic vol] 83.8 fL 81-[address] [facility] Hematocrit Auto (Bld) [Volum e fraction]Ordered By: Kt Lee on 11-09-2022 Hematocrit (Bld) [Volume fraction] 40.8 % 37-47 [facility] - Chemistry and C hemistry - challengeOrdered By: Kt Lee on 11-09-2022 ALP [Catalytic activity/Vol] 79 U/L 45-117 [facility] ALT [Catalytic activity/Vol] 71 U/L 13-56 [facility] CO2 [Moles/Vol] 27.0 mmol/L 21.0-32.0 [facility] Globulin (S) [Mass/Vol] 4.1 g/dL 2.2-4.[address] [facility] Urea nitrogen/Creatinine [Mass ratio] 16.4 mg/mg 10-20 [facility] - Hematology and Cell countsOrdered By: Kt Lee on 11-09-2022 Erythrocyte distribution width (RBC) [Entitic vol] 41.9 fL 35.1-43.9 [facility] Erythrocyte distribution width (RBC) [Ratio] 13.7 % 11.6-14.6 [facility] Immature granulocytes/100 WBC (Bld) 0.200 % 0.0-0.9 [facility] Comment on above: IG% - Immature Granu locytes (promyelocytes, myelocytes and metamyelocytes) > 1% indicates that a LEFT SHIFT is Present. MCH (RBC) [Entitic mass] 28.3 pg 27.0-32.0 [facility] Nucleated RBC/100 WBC (Bld) [Ratio] 0 % 0-5 [facility] MCHC Auto (RBC) [Mass/Vol]Or dered By: Kt Lee on 11-09-2022 MCHC (RBC) [Mass/Vol] 33.8 g/dL 32-36 [facility] No Panel InformationOrdered By: Kt Lee on 11-09-2022 Estimated GFR (MDRD) Amer 112 mL/min >60 [facility] Comment on above: GFR Calc Estimated GFR (MDRD) Non-Af Amer 93 mL/min >60 [facility] Comment on above: Non- GFR Calc Thyroid Stimulating Hormone (TSH) 1.41 uIU/mL 0.358-3.74 [facility] Platelets bldOrdered By: Zully Lee on 11-09-2022 Platelets (Bld) [#/Vol] 268 10*3/uL 150-450 [facility] Serum or plasma albumin janette urement (mass/volume)Ordered By: Kt Lee on 11-09-2022 Albumin [Mass/Vol] 3.8 g/dL 3.2-5.0 [facility] Serum or plasma albumin/glob ulin mass ratioOrdered By: Kt Lee on 11-09-2022 Albumin/Globulin [Mass ratio] 0.9 {ratio} 0.9-2.4 [facility] Serum or plasma calcium janette urement (mass/volume)Ordered By: Kt Lee on 11-09-2022 Calcium [Mass/Vol] 9.0 mg/dL 8.5-10.1 [facility] Serum or plasma cholesterol in HDL measurement (mass/volume)Ordered By: Kt Lee on 11-09-2022 Cholesterol in HDL [Mass/Vol] 41 mg/dL >40 [facility] Comment on above: The drugs N-Acetylcy steine and Metamizole may falsely depress this assay. Reference Range HDL <40 mg/dL Low HDL Cholesterol HDL >or= 60 mg/dL High HDL Cholesterol Serum or plasma cholesterol in VLDL measurement (mass/volume)Ordered By: Kt Lee on 11-09-2022 Cholesterol in VLDL [Mass/Vol] 43 mg/dL 5-40 [facility] Serum or plasma creatinine m easurement (mass/volume)Ordered By: Kt Lee on 11-09-2022 Creatinine [Mass/Vol] 0.73 mg/dL 0.55-1.02 [facility] Comment on above: The validity of the calculated GFR & GFRAA in patients over 70 years has not been determined. Clinical correlation is essential. Serum or plasma low density lipoprotein (LDL) cholesterol measurement (mass/volume)Ordered By: Kt Lee on 11-09-2022 Cholesterol in LDL [Mass/Vol] 140 mg/dL 0-130 [facility] Serum or plasma urea nitroge n measurement (mass/volume)Ordered By: Kt Lee on 11-09-2022 Urea nitrogen [Mass/Vol] 12 mg/dL 7-18 [facility] Thin prep Papanicolaou smear with manual screeningOrdered By: Kt Lee on 11-09-2022 Thin prep Papanicolaou smear with manual screening 46 U/L 15-37 [facility] Thin prep Papanicolaou smear with manual screening 3 5-15 [facility] Vital Signs Date Time Vital Sign Value Performing Clinician Faci lity 11-26-2024 09:02-0400 Body height 160.[address] Bob Marcano DO Work Phone: [facility] 11-26-2024 09:02-0400 Body mass index (BMI) [Ratio] 42.5 kg/m2 Dr. Bob Marcano DO Work Phone: [facility] 11-26-2024 09:02-0400 Body temperature 96.7 [degF] Dr. Bob Marcano DO Work Phone: [facility] 11-26-2024 09:02-0400 Body weight 109.[address] Bob Marcano DO Work Phone: [facility] 11-26-2024 09:02-0400 Diastolic blood pressure 82 mm[Hg] Dr. Bob Marcano DO Work Phone: [facility] 11-26-2024 09:02-0400 Heart rate 98 /min Dr. Bob Marcano DO Work Phone: [facility] 11-26-2024 09:02-0400 Respiratory rate 16 /min Dr. Bob Marcano DO Work Phone: [facility] 11-26-2024 09:02-0400 SaO2% (BldA) [Mass fraction] 98 % Dr. Bob Marcano DO Work Phone: [facility] 11-26-2024 09:02-0400 Systolic blood pressure 140 mm[Hg] Dr. Bob Marcano DO Work Phone: [facility] 05-30-2023 15:28-0500 Body height 160.[address] Bob Marcano Work Phone: [facility] 05-30-2023 15:28-0500 Body mass index (BMI) [Ratio] 41.8 kg/m2 Dr. Bob Marcano Work Phone: [facility] 05-30-2023 15:28-0500 Body temperature 99.2 [degF] Dr. Bob Marcano Work Phone: [facility] 05-30-2023 15:28-0500 Body weight 107.[address] Bob Marcano Work Phone: [facility] 05-30-2023 15:28-0500 Diastolic blood pressure 98 mm[Hg] Dr. Bob Marcano Work Phone: [facility] 05-30-2023 15:28-0500 Heart rate 97 /min Dr. Bob Marcano Work Phone: [facility] 05-30-2023 15:28-0500 Respiratory rate 16 /min Dr. Bob Marcano Work Phone: [facility] 05-30-2023 15:28-0500 SaO2% (BldA) [Mass fraction] 98 % Dr. Bob Marcano Work Phone: [facility] 05-30-2023 15:28-0500 Systolic blood pressure 144 mm[Hg] Dr. Bob Marcano Work Phone: [facility] 11-09-2022 15:01-0400 Body height 160.[address] Bob Marcano Work Phone: [facility] 11-09-2022 15:01-0400 Body mass index (BMI) [Ratio] 44.2 kg/m2 Dr. Bob Marcano Work Phone: [facility] 11-09-2022 15:01-0400 Body temperature 98.5 [degF] Dr. Bob Marcano Work Phone: [facility] 11-09-2022 15:01-0400 Body weight 113.[address] Bob Marcano Work Phone: [facility] 11-09-2022 15:01-0400 Diastolic blood pressure 94 mm[Hg] Dr. Bob Marcano Work Phone: [facility] 11-09-2022 15:01-0400 Heart rate 92 /min Dr. Bob Marcano Work Phone: [facility] 11-09-2022 15:01-0400 Respiratory rate 12 /min Dr. Bob Marcano Work Phone: [facility] 11-09-2022 15:01-0400 SaO2% (BldA) [Mass fraction] 97 % Dr. Bob Marcano Work Phone: [facility] 11-09-2022 15: Systolic blood pressure 144 mm[Hg] Dr. Bob Marcano Work Phone: [facility] Encounters Encounter Date Encounter Type Care Provider Facility Start: 05-27-2025 End: 05-27-2025 ambulatory Bob Marcano [place] [place]: 05-23-2025 ambulatory Bob Marcano Facilit y:[facility] Start: 11-26-2024 End: 11-26-[address] Bob Ferrer DO [facility] Work Phone: Start: 11-26-2024 End: 11-26-[address] Bob Marcano DO Work Phone: [facility] Work Phone: Start: 11-26-2024 End: 11-26-2024 ambulatory Bob Marcano Facility:[facility] Start: 06-26-2024 End: 06-26-2024 ambulatory Bob Marcano Facility:[facility] Start: 05-28-[address] Bob Marcano DO Work Phone: [facility] Start: 06-14-2023 End: 06-14-[address] Bob Marcano Work Phone: [facility] Work Phone: Start: 06-14-2023 End: 06-14-[address] Bob Marcano Work Phone: [facility] Work Phone: Start: 05-30-2023 End: 05-30-[address] Bob Marcano Work Phone: [facility] Work Phone: Start: 11-09-2022 End: 11-09-[address] Bob Marcano Work Phone: [facility] Work Phone: Start: 11-09-[address] Zuly Marcano Work Phone: [facility] Start: 11-09-2022 End: 11-09-[address] Bob Marcano Work Phone: [facility] Internal [facility] Procedures Date Procedure Procedure Detail Performing Clinician Start: 06-14-2023 Screening mammography Zuly Marcano Work Phone: Plan of Treatment Date Care Activity Detail Author Start: 11-26-2024 [facility] Work Phone: Patient referral [facility] Work Phone: Payers Date Payer Category Payer Self-pay [id number] 2024 Unknown [id number] 2024 Unknown [id number] Private Health Insurance 000 [id number] Unknown [employer] [id number] Unknown [facility] [id number] Unknown [id number] Unknown [id number] Unknown [id number] Unknown [id number] Unknown [id number] Social History Date Type Detail Facility Start: 11-09-2022 End: 05-30-2023 Tobacco smoking status NHIS Unknown if ever smoked [facility] Start: 1980 Sex Assigned At Female [facility] Start: 05-30-2023 Tobacco smoking stat us NHIS Never smoked tobacco (finding) [facility] Evaluation note 11-26-2024 Note Date & Type Note Facility 11-26-2024 Evaluation note Diagnosis Onset Date Resolution Dyslipidemia acute November 26 8:59am Family history of colon cancer requiring screening colonoscopy acute November 26 8:59am Depression chronic November 26, 2024 8:59am HTN (hypertension) chronic November 8:59am [facility] Work Phone: Evaluation note Note Date & Type Note Facility Evaluation note Diagnosis Onset Date Depression chronic [facility] Work Phone: Evaluation note Note Date & Type Note Facility Evaluation note Diagnosis Onset Date Depression chronic HTN (hypertension) chronic [facility] Work Phone: Hospital Discharge instructions Note Date & Type Note Facility Hospital Discharge instructions Ambulatory OrdersGeneral Surgery Location: None Selected [facility] Work Phone: Chief Complaint and Reason for Visit Chief Complaint Med refills Reason for Visit Depression Chief Complaint 6 M FU SCREENING Reason for Visit Depression HTN (hypertension) Chief Complaint Admit Date 6 M FU November 26, 2024 8:59am Reason for Visit Admit Date Dyslipidemia November 26, 2024 8:59am Family history of colon cancer requiring screening colonoscopy November 26, 2024 8:59am Depression November 26, 2024 8:59am HTN (hypertension) November 26, 2024 8:59am Family History No Family History Records Found Relationship Condition Age at Onset Recorded Date/T bassam Not Specified Anxiety and depression Unknown father Malignant neoplasm of colon Unknown Hypertension Unknown Advance Directives No Advanced Directives Records Found Advance Directive Response Recorded Date/ Time Advance Directives No November 01 8:54am Living Will No November 02, 2015 8:54am Power of Equalizing Saw Operator No November 01 8:54am Advance Directive Response Recorded Date/ Time Advance Directives No November 01 016 7:54am Living Will No November 02, 2015 7:54am Power of Equalizing Saw Operator No November 01 16 7:54am Advance Directive Response Recorded Date/ Time Living Will No November 02, 2015 8:54am Do you have a Healthcare Power of Equalizing Saw Operator? No November 02, 2015 8:54am Advance Directives No November 01 016 8:54am Summary Purpose Additional Source Comments Care Teams (unrecognized sec tion and content) Team Status: Active Member Role Status Dates Dr. Bob Marcano DO Family Provider Active Dr. Bob Marcano DO Primary Care Provider Active Team Status: Inactive Member Role Status Dates Dr. Bob Marcano DO Primary Care Provider, Referr ing Provider Active Kt Lee PLANT MAINTENANCE TECHNICIAN, PLANT MAINTENANCE TECHNICIAN-C Attending Provider Active Team Status: Inactive Member Role Status Dates Dr. Bob Marcano DO Primary Care Provider Active Kt Lee PLANT MAINTENANCE TECHNICIAN, PLANT MAINTENANCE TECHNICIAN-C Attending Provider, Referring Prov ider Active Team Status: Inactive Member Role Status Dates Dr. Bob Marcano DO Primary Care Pr ovider, Attending Provider, Referring Provider Active Team Status: Active Member Role Status Dates Dr. Bob Marcano DO Primary Care Provider Active Team Status: Inactive Member Role Status Dates Dr. Bob Marcano DO Primary Care Provider Active Start: November 26, 2024 End: November 26, 2024 Dr. Bob Marcano DO Attending Provider Active Start: November 26, 2024 End: November 26, 2024 Dr. Bob Marcano DO Referring Provider Active Start: November 26, 2024 End: November 26, 2024 Team Status: Inactive Member Role Status Dates Dr. Bob Marcano DO Primary Care Provider Active Start: November 26, 2024 End: November 26, 2024 Dr. Bob Marcano DO Attending Provider Active Start: November 26, 2024 End: November 26, 2024 Goals (unrecognized section and content) Goals may be documented in a n alternate sectionGoals may be documented in an alternate sectionGoals may be documented in an alternate section INFORMATION SOURCE (unrecogn ized section and content) DATE CREATED AUTHOR 05/28/2025 [facility] FOR RECORDS PERTAINING TO PATIENTS WHO ARE OR HAVE BEEN ENROLLED IN A CHEMICAL DEPENDENCY/SUBSTANCEABUSE PROGRAM, SOME INFORMATION MAY BE OMITTED. This clinical summary was aggregated from multiple sources. Caution should be exercised in using it in the provision of clinical care. This summary normalizes information from multiple sources, and as a consequence, information in this document may materially change the coding, format and clinical context of patient data. In addition, data may be omitted in some cases. CLINICAL DECISIONS SHOULD BE BASED ON THE PRIMARY CLINICAL RECORDS. [facility] [employer] [facility]. provides no warranty or guarantee of the accuracy or completeness of information in this document.
--- NOTE | 2025-06-27 06:36 | PCM.HP.BLA ---
History and Physical Date of Admission: 06/27/25 Intake Vital Signs 05/27/2509:17 06/11/2514:06 Height 5 ft 3 in 5 ft 3 in Weight: 242 lb 245 lb BMI 42.8 43.4 BP 134/82 H 145/87 H Blood Pressure Location Lt brachial Rt brachial Position Sitting Sitting Respiration 16 17 Pulse 79 97 Pulse Source Monitor Monitor Temp 98.2 F Temp Source Temporal Pulse Oximetry (%) 98 98 Oxygen Delivery Method room air room air Intake Visit Reasons: COLONOSCOPY, CHANGE IN BOWEL Chief Complaint: colonoscopy, change in bowel Is patient in pain?: No Allergies No Known Allergies Allergy (Verified 06/11/25 14:07) Medications ?Medication ?Instructions ?Recorded ?Confirmed ?Type albuterol sulfate 90 mcg/actuation 2 puff inhalation Q6H PRN 05/27/25 06/11/25 Rx aerosol inhaler (Ventolin HFA) shortness of breath or wheezing #8.5 grams atorvastatin 20 mg tablet (Lipitor) 20 mg PO QDAY #90 tabs 05/27/25 06/11/25 Rx lactobacillus combination no.4 3 3,000 mmu cells PO QDAY 05/27/25 06/11/25 History billion cell capsule (Probiotic) lisinopril 20 1 tab PO DAILY #90 tabs 05/27/25 06/11/25 Rx mg-hydrochlorothiazide 12.5 mg tablet multivitamin 1 tab PO QAM 05/27/25 06/11/25 History sertraline 100 mg tablet 100 mg PO DAILY #90 TABLETS 05/27/25 06/11/25 Rx PFSH Medical History HTN (hypertension) Encounter for preventative adult health care examination Anxiety and depression Asthma Surgical History History of colonoscopy History of History of tonsillectomy Family History Father Colon cancer Hypertension Other Anxiety and depression Social History Smoking Status: Never smoker alcohol intake: never substance use type: does not use what type of physical activity do you participate in: walking frequency: daily Female Reproductive History Menstrual Duration of menses: <3 days control method: other HPI HPI HPI: Patient is a 45-year-old female here for bowel habit changes. She reports that she had her last colonoscopy about 9 years ago and was normal. She says that lately she has been having mucus with her stools and she has been very gassy. She says this is a change. She does have family history of colon cancer in her father. ROS General General: No weight change, appetite, fatigue, colon cancer, breast cancer or weakness HEENT HEENT: No difficulty swallowing, eye injury, eye surgery, swollen glands or hoarseness Endo Endocrine: No thyroid disease, diabetes mellitus, thyroid cancer, Hair loss, heat intolerance or cold intolerance Skin Skin: No rash or changing moles Musc Musculoskeletal: No back problems, arthritis, rheumatoid arthritis, gout or joint pain Cardio Cardiovascular: No murmur, pacemaker, heart disease, atrial fibrillation, high blood pressure, heart attack, heart stent, palpitations, shortness of breath with exertion or chest pain Psych Psychiatric: Yes depression and anxiety; No hearing voices Resp Respiratory: No shortness of breath, No sleep apnea, No cough, No COPD, Yes asthma, No emphysema and No wheezing Gastro Gastrointestinal: No abdominal pain, No nausea or vomiting, No diarrhea, No constipation, No blood in stool, Yes acid reflux, Yes hemorrhoids, No ulcers, No gallbladder problem and No black,tarry stools Kurt Hematologic: No blood thinners, No blood disorders, No bleeding, No anemia and No blood clots Neuro Neurologic: No system reviewed and no additional complaints, except as documented, No as per HPI, No abnormal gait, No abnormal hearing, No abnormal movements, No abnormal speech, No behavioral changes, No burning sensations, No confusion, No convulsions, No disequilibrium, No dizziness, No localized weakness, No frequent falls, No headache(s), No lack of coordination, No loss of vision, No memory loss, No numbness, No other visual disturbances, No radicular pain, No restless legs, No sensory deficit, No syncope, No tingling, No tremor(s), No weakness and No other Exam Const General: cooperative Orientation: alert and oriented x3 HENMT Head: normal to inspection Neck Neck: normal visual inspection and full ROM Chest Chest palpation & inspection: normal inspection of the chest Resp Effort & Inspection: normal respiratory effort Auscultation: clear to auscultation bilaterally Cardio Rate: regular rate Rhythm: regular rhythm GI Inspection: non-distended Palpation: soft and nontender Skin General: no rashes or lesions noted Neuro General: patient alert and patient oriented x3 Extrem General: full ROM Psych Appearance: grossly normal Mental Status: mental status grossly normal Assessment and Plan Assessment and Plan (1) Change in bowel movement: Status: Acute Plan: Patient notes more mucus in her stool and she is having a lot more gas. She says this is a change in her normal bowel movements. Her PCP would like her to have her colonoscopy early to evaluate. She does have family history of colon cancer. I explained endoscopy in detail to the patient. I explained the risks including but not limited to stroke or heart attack with anesthesia, perforation of the GI tract, bleeding, infection. I explained that any of these could necessitate further emergency surgery. The patient understands and all questions were answered sufficiently. The patient wishes to proceed with procedure. Moe De La Garza MD Pager: [facility] [address] [place] [address] [address] [place] [address] Office: I have seen and examined the patient and reviewed the H&P. There are no clinical changes
[2025-06-27] MEDS: Lactated Ringers 1,000 ML 15 ML IV (06:53)
--- NOTE | 2025-06-27 06:56 | PCM.PRE.AN2 ---
ASA Classification* ASA Classification ASA Classification: 3 Assessment & Plan Anesthesia* Anesthesia Assessment Anesthesia Assessment: Discussed sedation and/or anesthesia options, risks, benefits, and alternatives with patient/parents/legal guardian/POA. Questions invited. The patient/parents/legal guardian/POA seems to understand and agrees to proceed with anesthesia plan. Reviewed the physical assessment, medical history, allergy history and patient home medications list prior to surgery/procedure/anesthetic and documented any changes. Performed airway and anesthesia risk assessments. Anesthesia Type Anesthesia Type: MAC Anesthesia Focused Assessment* Temperature: 97.8 F Pulse Rate: 90 Blood Pressure: 124/82 Respiratory Rate: 16 Pulse Ox: 97 Airway Assessment Mouth opens: >3 cm Mallampati Score: II Labs Anesthesia Preop lab: CBC WBC, (4.4-11.0) 8.2 K/mm3 11/09/22, 15:15 RBC, (4.2-5.4) 4.87 M/mm3 11/09/22, 15:15 Hgb, (12.0-15.0) 13.8 g/dL 11/09/22, 15:15 Hct, (37-47) 40.8 % 11/09/22, 15:15 Plt Count, (150-450) 268 K/mm3 11/09/22, 15:15 CHEMISTRY Potassium, (3.3-5.1) 4.6 mmol/L 11/26/24, 09:28 Sodium, (133-145) 140 mmol/L 11/26/24, 09:28 BUN, (4-19) 14 mg/dL 11/26/24, 09:28 Creatinine, (0.70-1.20) 0.80 mg/dL 11/26/24, 09:28 Glucose, (70-99) 99 mg/dL 11/26/24, 09:28 TSH, (0.358-3.74) 1.41 uIU/mL 11/09/22, 15:15 COAG Pre-Assessment Diagnosis/Proposed Procedure Planned Operative Procedure(s): COLONOSCOPY Anesthesia History 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 When Was Last Pacemaker Check QUESTION #4 FULL TEXT: You/Your Family Experience fever (hyperthermia) with Anesthesia Last Oral Intake Last Oral intake: Last Oral Intake NPO since 22:30 06/27/25 06:50 Meds taken in AM with sips of Yes 06/27/25 06:50 water? Meds patient instructed to take am of surgery PONV PONV - drivematic machine operator: PONV - drivematic machine operator Female Yes 06/25/25 10:47 HX of Motion Sickness Yes 06/25/25 10:47 HX of N/V After Surgery No 06/25/25 10:47 Non-Smoker Yes 06/25/25 10:47 Duration of Surgery greater No 06/25/25 10:47 than 60 minutes Number of Risk Factors 3 06/25/25 10:47 PONV Score Moderate Risk 06/25/25 10:47 Height & Weight Height & Weight: Anesthesia: Height & Weight Height 5 ft 2 in 06/27/25 06:50 Weight: 108.3 kg 06/27/25 06:50 Body Mass Index (BMI) 43.7 06/27/25 06:50 Respiratory Assessment Respiratory Assessment - drivematic machine operator: Respiratory Tract Infection Hx - drivematic machine operator Hx Respiratory Tract Infection No 06/25/25 10:47 STOP Sleep Apnea STOP Sleep Apnea - drivematic machine operator: STOP Sleep Apnea - drivematic machine operator Hx Hypertension Yes 06/25/25 10:47 Hx Sleep Apnea No 06/25/25 10:47 CPAP BIPAP Do you snore loudly (louder No 06/25/25 10:47 than talking or can be heard Do you often feel tired/ No 06/25/25 10:47 fatigued/ sleepy during daytime? Has anyone observed you stop No 06/25/25 10:47 breathing during sleep? STOP Results Negative 06/25/25 10:47 QUESTION #5 FULL TEXT : Do you snore loudly (louder than talking or can be heard through closed doors)? 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 Specify any problems Hx of Preganancy in last 3 No 06/25/25 10:47 Months Nurse Filling Out Transfusion VLEHMAN 06/25/25 10:47 & Questions: Date: 06/25/25 06/25/25 10:47 Time: 10:48 06/25/25 10:47 Patient unable to answer at this time (ie. confused, unrespo /Reproduction History /Reproductive History - drivematic machine operator: /Reproductive Hx- drivematic machine operator Hx Now No 06/25/25 10:47 Gestational Age (in weeks): EDC: Hx Hx Para Hx Section SAB No 06/25/25 10:47 Does the father of the baby or his family experience fever w Father of the baby Malignant Hypertension history comment Active Medications Active Medications: Current Medications Generic Name Dose Route Start Last Admin Trade Name Freq PRN Reason Stop Dose Admin Lactated Ringer's 1,000 mls @ 15 mls/hr 06/27/25 06:30 IV .Q48H EVIE PFSH Medical History Wears contact lenses Wears glasses High cholesterol Non-smoker HTN (hypertension) Encounter for preventative adult health care examination Anxiety and depression Asthma Home Medications ?Medication ?Instructions ?Recorded ?Last Taken ?Type albuterol sulfate 90 mcg/actuation 2 puff inhalation Q6H PRN 05/27/25 Unknown Rx aerosol inhaler (Ventolin HFA) shortness of breath or wheezing #8.5 grams atorvastatin 20 mg tablet (Lipitor) 20 mg PO QDAY #90 tabs 05/27/25 06/27/25 Rx lactobacillus combination no.4 3 3,000 mmu cells PO QDAY 05/27/25 Unknown History billion cell capsule (Probiotic) lisinopril 20 1 tab PO DAILY #90 tabs 05/27/25 06/27/25 Rx mg-hydrochlorothiazide 12.5 mg tablet multivitamin 1 tab PO QAM 05/27/25 Unknown History sertraline 100 mg tablet 100 mg PO DAILY #90 TABLETS 05/27/25 06/27/25 Rx Allergy/AdvReac Type Severity Reaction Status Date / Time No Known Allergies Allergy Verified 06/27/25 06:49 Family History Father Colon cancer Hypertension Other Anxiety and depression Surgical History History of colonoscopy History of History of tonsillectomy Social History Smoking Status: Never smoker alcohol intake: never substance use type: does not use what type of physical activity do you participate in: walking frequency: daily Review of Systems (Anesthesia) ROS Narrative System reviewed and no additional complaints, except as documented.
[2025-06-27 07:11] LABS: Internal QC Validated? YES +Cl - CLEAR BKGD; Pregnancy, Urine Negative Negative
--- NOTE | 2025-06-27 07:30 | COLBX_PTH ---
PATIENT: JESSICA AVINA LOC: [facility] U#:[id number] AGE/SX: 45/F ROOM: RE06/27/[address]: Dr. Moe De La Garza MD : 1980 BED: DIS: 06/27/2025 SPEC #: [id number] RECD: 06/27/25 09:26 STATUS: RICHELLE MINNIE #: [id number] MELANIA: 06/27/25 07:[address]: Moe De La Garza DEPT: SURGICAL PATHOLOGY RECD BY: Jimmy Vallejo ENTERED: 06/27/25 11:31 SP TYPE: COLON BX OTHR DR: Dr. Bob Marcano, DO Tissues: A - Rectum, NOS Procedures: Surgery Specimen Level IV HEADER OPERATION: Colonoscopy with biopsy PRE-OP DIAGNOSIS: Change in bowel movement TISSUE SUBMITTED: A- Rectal mass biopsy MICROSCOPIC DIAGNOSIS A. Rectum, mass, biopsy: - At least mucosal adenocarcinoma - see note. Note: The biopsy fragments are superficial and do not include the full-thickness of the mucosa. An invasive carcinoma cannot be ruled out. MICROSCOPIC DESCRIPTION Slides are reviewed. GROSS DESCRIPTION A. Received in fixative is one container labeled with the patient's name and designated Rectal mass biopsy. The specimen consists of multiple irregular fragments of concepcion tissue that in aggregate measure 1.5 x 0.6 x 0.1 cm. The specimen is totally submitted in one cassette. [place] 06/27/2025 CPT:75698
[2025-06-27] MEDS: Lidocaine 1% (5 ml sdv) 5 ML Vial IV (07:37)
--- NOTE | 2025-06-27 08:01 | PCM.POST.ANE ---
Anesthesia: Postop Eval I Current Vital Signs Temperature: 98 F Pulse Rate: 71 Blood Pressure: 100/60 Respiratory Rate: 16 Pulse Ox: 97 Oxygen Delivery Method: Room Air Assessment Airway patent: Yes Spontaneous unlabored respirations: Yes Mental status: Awake and Calm nausea: No Vomiting: No Anesthesia Complication: No Fluid Hydration Crystalloid volume administer (ml): 300 Total IV fluid infused: 300 Progress Note Anesthesia document: Postop Eval 1 completed: Yes
--- NOTE | 2025-06-27 08:08 | OP.COLON_ITS ---
Patient Name: Triny Pimentel Procedure Date: 06/27/2025 7:40 AM Date of : 1980 Age: 45 Procedure: Colonoscopy Indications: Change in bowel habits Providers: Moe De La Garza MD Referring MD: Bob Marcano Medicines: Propofol per Anesthesia Patient Profile: This is a 45 year old female. Refer to note in patient chart for documentation of history and physical. Last Colonoscopy: none. The patient's first colonoscopy is today. Complications: No immediate complications. Estimated blood loss: Minimal. Procedure: Pre-Anesthesia Assessment: - Prior to the procedure, a History and Physical was performed, and patient medications and allergies were reviewed. The patient's tolerance of previous anesthesia was also reviewed. The risks and benefits of the procedure and the sedation options and risks were discussed with the patient. All questions were answered, and informed consent was obtained. Prior Anticoagulants: The patient has taken no anticoagulant or antiplatelet agents. After reviewing the risks and benefits, the patient was deemed in satisfactory condition to undergo the procedure. After I obtained informed consent, the scope was passed under direct vision. Throughout the procedure, the patient's blood pressure, pulse, and oxygen saturations were monitored continuously. The colonoscope was introduced through the anus and advanced to the cecum, identified by appendiceal orifice and ileocecal valve. The colonoscopy was performed without difficulty. The patient tolerated the procedure well. The quality of the bowel preparation was good. The ileocecal valve, appendiceal orifice, and rectum were photographed. Scope In: 7:42:02 AM Scope Withdrawal Time 0 hours 5 minutes 49 seconds Scope Out: 7:53:46 AM Total Procedure Duration Time 0 hours 11 minutes 44 seconds Findings: A large polyp was found in the rectum. The polyp was semi-sessile. Biopsies were taken with a cold forceps for histology. The exam was otherwise without abnormality on direct and retroflexion views. Impression: - One large polyp in the rectum. Biopsied. - The examination was otherwise normal on direct and retroflexion views. Recommendation: - Discharge patient to home. - Resume previous diet. - Continue present medications. - Await pathology results. - Refer to a colo-rectal surgeon at appointment to be scheduled. - Repeat colonoscopy in 1 year for surveillance based on pathology results. Procedure Code(s): --- Professional --- 60922, Colonoscopy, flexible; with biopsy, single or multiple Diagnosis Code(s): --- Professional --- D12.8, Benign neoplasm of rectum R19.4, Change in bowel habit CPT copyright 2021 [employer]. All rights reserved. The codes documented in this report are preliminary and upon wood milling machine tender review may be revised to meet current compliance requirements. Moe De La Garza MD 06/27/2025 8:08:18 AM This report has been signed electronically. Number of Addenda: 0 Note Initiated On: 06/27/2025 7:40 AM
--- NOTE | 2025-06-27 08:09 | OP.PROVAT_ITS ---
06/27/2025 Bob Marcano Re : Colonoscopy procedure for Triny Pimentel Dear Dr. Marcano This procedure was performed on Friday, June 27, 2025. My impressions and recommendations are as follows: Impressions : - One large polyp in the rectum. Biopsied. - The examination was otherwise normal on direct and retroflexion views. Recommendations : - Discharge patient to home. - Resume previous diet. - Continue present medications. - Await pathology results. - Refer to a colo-rectal surgeon at appointment to be scheduled. - Repeat colonoscopy in 1 year for surveillance based on pathology results. My findings are described in the full procedure note, which is enclosed. If I can be of further assistance, please feel free to contact me at Doctor phone number(s): , Work: . Sincerely, Moe De La Garza MD 06/27/2025 8:08:18 AM This report has been signed electronically.
--- NOTE | 2025-06-27 09:12 | POSTOPAN2_ITS ---
Anesthesia Postop Eval I Sum Postop Eval Completion status Anesthesia document: Postop Eval 1 completed: Yes Anesthesia Postop Eval I Summary Anesthesia Postop Eval I Summary: Anesthesia Postop Eval I: Assessment Summary Airway patent Yes 06/27/25 08:02 MANAGER TELECOM.MDOT Spontaneous unlabored Yes 06/27/25 08:02 MANAGER TELECOM.OT respirations Mental status Awake,Calm 06/27/25 08:02 MANAGER TELECOM.MDOT nausea No 06/27/25 08:02 MANAGER TELECOM.MDOT Vomiting No 06/27/25 08:02 MANAGER TELECOM.MDOT Anesthesia Postop Eval I: Fluid Summary Crystalloid volume administer 300 06/27/25 08:02 MANAGER TELECOM.MDOT (ml) Colloids volume administered ( ml) Blood Product volume administered (ml) Total IV fluid infused 300 06/27/25 08:02 MANAGER TELECOM.OT Anesthesia Postop Eval I: Summary Notes Anesthesia Complication No 06/27/25 08:02 MANAGER TELECOM.OT Anesthesia Complication Comment: Post-operative progress note Anesthesia: Postop Eval II Evaluation Mental status: Awake Pain Level: 0 nausea: No Vomiting: No
--- NOTE | 2025-06-27 09:12 | PCM.POSTANE2 ---
Anesthesia Postop Eval I Sum Postop Eval Completion status Anesthesia document: Postop Eval 1 completed: Yes Anesthesia Postop Eval I Summary Anesthesia Postop Eval I Summary: Anesthesia Postop Eval I: Assessment Summary Airway patent Yes 06/27/25 08:02 AUTOMATION QA ANALYST.MDOT Spontaneous unlabored Yes 06/27/25 08:02 AUTOMATION QA ANALYST.OT respirations Mental status Awake,Calm 06/27/25 08:02 AUTOMATION QA ANALYST.MDOT nausea No 06/27/25 08:02 AUTOMATION QA ANALYST.MDOT Vomiting No 06/27/25 08:02 AUTOMATION QA ANALYST.MDOT Anesthesia Postop Eval I: Fluid Summary Crystalloid volume administer 300 06/27/25 08:02 AUTOMATION QA ANALYST.MDOT (ml) Colloids volume administered ( ml) Blood Product volume administered (ml) Total IV fluid infused 300 06/27/25 08:02 AUTOMATION QA ANALYST.OT Anesthesia Postop Eval I: Summary Notes Anesthesia Complication No 06/27/25 08:02 AUTOMATION QA ANALYST.OT Anesthesia Complication Comment: Post-operative progress note Anesthesia: Postop Eval II Evaluation Mental status: Awake Pain Level: 0 nausea: No Vomiting: No
== END 2025-06-27 08:57 | disposition home or self-care (01) ==
LOC: EN 06:27 → AC 06:28
PROVIDERS: Anesthesiology; PCP Family Medicine; Referring Provider Family Medicine; Visit Provider Surgery
PROC: 0DJD8ZZ Inspection of Lower Intestinal Tract, Via Natural or Artificial Opening Endoscopic (ICD-10-PCS; CPT 45378; principal; 2025-06-27 07:25)
DX: C20 Malignant neoplasm of rectum (principal); I10 Essential (primary) hypertension; J45.909 Unspecified asthma, uncomplicated; E78.00 Pure hypercholesterolemia, unspecified; Z79.899 Other long term (current) drug therapy
CPT/HCPCS: 45380; 81025; 88305

== ENCOUNTER → 2025-07-21 | Outpatient (CLI) | payer BC, SELFPAY ==
--- OUTSIDE RECORDS SUMMARY | 2025-07-21 07:23 | XMS RPT_ITS | CCD ---
Author Organization [facility] ion Partnership [facility] Care Team Providers Care Supervisor Tubing Name Role Phone Dr. oBb Marcano Primary Care Provider [phone] Dr. Bob Marcano Referring Provider [phone] [facility] Kt Attending Provider [phone] Dr. Bob Marcano Primary Care Provider [phone] Dr. Bob Marcano Attending Provider [phone] Dr. Bob Marcano Referring Provider [phone] Dr. Bob Marcano DO Primary Care Provider [phone] Dr. Bob Marcano DO Attending Provider [phone] Drug Class(es) Dates Sig (Normalized) Sig (Original) [id number] 200 actuat albuterol 0.09 mg/actuat metered dose [...] Vis iton 05-27-2025 Internal Medicine Office Visit [facility] Internal Medicine [address] [place] [address] [place] [address] OFFICE VISIT Date of Service: 05/27/25 MR#: [id number] Acct: [id number] Name: KAILYNJESSICA ESCALANTEYEL Rep #: [id number] : 1980 Provider: Dr. Bob de anda, DO Age/Sex: 45/F Location: [facility] Status: Signed Intake Vital Signs 11/26/24 09:02 [...] M FU Chief Complaint: Routine 6-month recheck. Cleaning Validation Consultant Required: No Is patient in pain?: No [...] loss an (more content not included)... Normal [facility] Lipid Profileon 05-23-2025 CHOL:HDL 3.23 Normal [facility] Comment on above: Performed By: #### L 403.3257 #### [facility] [address] [place], [place], [id number] Cholesterol [Mass/Vol] 141 mg/dL Normal <=200 [facility] Comment on above: Result Comment: Chol esterol level, Desirable <200 mg/dL Borderline high cholesterol 200-239 mg/dL High cholesterol >=240 mg/dL Recommendations of the NCEP Adult Treatment Panel for the following risk-cutoff thresholds for the [place] population. Performed By: #### L 500.4100 #### [facility] [address] [place], [address] Cholesterol in HDL [Mass/Vol] 44 mg/dL Normal [facility] Comment on above: Result Comment: Bonnie onal Cholesterol Education Program (NCEP) guidelines: <40 mg/dL: Low HDL-cholesterol (major risk factor for CHD) >= 60 mg/dL: High HDL-cholesterol (negative risk factor for CHD) HDL-cholesterol is affected by a number of factors, e.g. smoking, exercise, hormones, sex and age. Performed By: #### L 500.4100 #### [facility] [address] [place], [address] Cholesterol in LDL [Mass/Vol] 78 mg/dL Normal [facility] Comment on above: Result Comment: Bord wllttz=541-279 mg/dL Higher Ztju=984 mg/dL or greater Singh Equation 2020 for LDL-C Performed By: #### L 500.4100 #### [facility] [address] [place], [address] Cholesterol in VLDL [Mass/Vol] 21 mg/dL Normal 5-40 [facility] Comment on above: Performed By: #### L 500.4100 #### [facility] [address] [place], [address] Triglyceride [Mass/Vol] 104 mg/dL Normal [facility] Comment on above: Result Comment: The drugs N-Acetylcysteine and Metamizole may falsely depress this assay. Normal range: <150 mg/dL Borderline High: 150-199 mg/dL High: 200-499 mg/dL Very High: >500 mg/dL Performed By: #### L 500.4100 #### [facility] [address] [place], [address] Anion gap in Serum or Plasma Ordered By: Bob Marcano on 11-26-2024 Anion gap [Moles/Vol] 12 mmol/L 5-15 [facility] BUN/creatinine ratioOrdered By: Bob Marcano on 11-26-2024 Urea nitrogen/Creatinine [Mass ratio] 17.0 mg/mg 10-20 [facility] Bilirubin, totalOrdered By: Bob Marcano on 11-26-2024 Bilirubin [Mass/Vol] 0.55 mg/dL 0.00-1.30 [facility] Calculated very low density lipoprotein (VLDL) cholesterol measurementOrdered By: Bob Marcano on 11-26-2024 Calculated very low density lipoprotein (VLDL) cholesterol measurement 29 mg/dL 5-40 [facility] Carbon dioxide, total [Moles /volume] in Central venous bloodOrdered By: Bob Marcano on 11-26-2024 CO2 [Moles/Vol] 25.3 mmol/L 21.0-32.0 [facility] Chloride assayOrdered By: Do laura Marcano on 11-26-2024 Chloride [Moles/Vol] 102 mmol/L 98-108 [facility] Comprehensive Metabolic Prof ilon 11-26-2024 Albumin [Mass/Vol] 4.4 g/dL Normal 3.5-5.0 [facility] Comment on above: Performed By: #### L 500.4100, L500.4050 #### [facility] [address] [place], [address] Albumin/Globulin [Mass ratio] 1.2 {ratio} Normal 0.9-2.4 [facility] Comment on above: Performed By: #### L 500.4100, L500.4050 #### [facility] [address] [place], [address] ALK PHOS 77 U/L Normal 35-104 [facility] Comment on above: Performed By: #### L 500.4100, L500.4050 #### [facility] [address] [place], [address] ALT [Catalytic activity/Vol] 34 U/L Normal <=34 [facility] Comment on above: Performed By: #### L 500.4100, L500.4050 #### [facility] [address] [place], [address] AST [Catalytic activity/Vol] 30 U/L Normal <=31 [facility] Comment on above: Performed By: #### L 500.4100, L500.4050 #### [facility] [address] [place], [address] Bilirubin [Mass/Vol] 0.55 mg/dL Normal 0.00-1.30 [facility] Comment on above: Performed By: #### L 500.4100, L500.4050 #### [facility] [address] [place], [address] BUN/CRE 17.0 RATIO Normal 10-20 [facility] Comment on above: Performed By: #### L 500.4100, L500.4050 #### [facility] [address] [place], [address] Calcium [Mass/Vol] 9.6 mg/dL Normal 7.6-11.0 [facility] Comment on above: Performed By: #### L 500.4100, L500.4050 #### [facility] [address] [place], [address] Chloride [Moles/Vol] 102 mmol/L Normal 98-108 [facility] Comment on above: Performed By: #### L 500.4100, L500.4050 #### [facility] [address] [place], [address] CO2 [Moles/Vol] 25.3 mmol/L Normal 21.0-32.0 [facility] Comment on above: Performed By: #### L 500.4100, L500.4050 #### [facility] [address] [place], [address] Creatinine [Mass/Vol] 0.80 mg/dL Normal 0.70-1.20 [facility] Comment on above: Performed By: #### L 500.4100, L500.4050 #### [facility] [address] [place], [address] GAP 12 Normal 5-15 [facility] Comment on above: Performed By: #### L 500.4100, L500.4050 #### [facility] [address] [place], [address] GFR/1.73 sq M.predicted among non-blacks MDRD (S/P/Bld) [Vol rate/Area] 93 mL/min/{1.73_m2} Normal >60 [facility] Comment on above: Result Comment: mL/m in/1.73m2 CKD-EPI Creatinine Equation (2020) Performed By: #### L 500.4100, L500.4050 #### [facility] [address] [place], [address] Globulin (S) [Mass/Vol] 3.6 g/dL Normal 2.2-4.2 [facility] Comment on above: Performed By: #### L 500.4100, L500.4050 #### [facility] [address] [place], [address] Glucose [Mass/Vol] 99 mg/dL Normal 70-99 [facility] Comment on above: Performed By: #### L 500.4100, L500.4050 #### [facility] [address] [place], [address] Potassium [Moles/Vol] 4.6 mmol/L Normal 3.3-5.1 [facility] Comment on above: Performed By: #### L 500.4100, L500.4050 #### [facility] [address] [place], [address] Sodium [Moles/Vol] 140 mmol/L Normal 133-145 [facility] Comment on above: Performed By: #### L 500.4100, L500.4050 #### [facility] [address] [place], [address] T PROT 8.0 g/dL Normal 5.9-8.4 [facility] Comment on above: Performed By: #### L 500.4100, L500.4050 #### [facility] [address] [place], [address] Urea nitrogen [Mass/Vol] 14 mg/dL Normal 4-19 [facility] Comment on above: Performed By: #### L 500.4100, L500.4050 #### [facility] [address] [place], [address] Glomerular filtration rate ( GFR) estimation/1.73 sq m using serum, plasma, or whole bOrdered By: Bob Marcano on 11-26-2024 GFR/1.73 sq M.predicted among non-blacks MDRD (S/P/Bld) [Vol rate/Area] 93 mL/min/{1.73_m2} >60 [facility] Comment on above: mL/min/1.73m2 CKD-EP I Creatinine Equation (2020) Internal Medicine Office Vis frances 11-26-2024 Internal Medicine Office Visit [facility] [address] [place], [place] [address] OFFICE VISIT Date of Service: 11/26/24 MR#: [id number] Acct: [id number] Name: JESSICA AVINA Rep #: [id number] : 1980 Provider: Dr. Bob de anda, DO Age/Sex: 44/F Location: [facility] Status: Signed Intake Vital Signs 05/28/24 09:07 [...] M FU Chief Complaint: 6 M FU Cleaning Validation Consultant Required: No Accompanied by: Self Is patient [...] oriented x3 Limitations: mental status not altered [facility] Head: normal to inspection Ears: hearing grossly normal bilaterally Nose: external nose normal Eyes General: ap (more content not included)... Normal [facility] LDL calc ser/plasOrdered By: Bob Marcano on 11-26-2024 Cholesterol in LDL [Mass/Vol] 169 mg/dL [facility] Comment on above: Zfnlolksrr=819-373 m g/dL & Higher Szyq=086 mg/dL or greater Laboratory - Chemistry and C hemistry - challengeOrdered By: Bob Marcano on 11-26-2024 AST [Catalytic activity/Vol] 30 U/L <32 [facility] Lipid Profileon 11-26-2024 CHOL:HDL 5.01 Normal [facility] Comment on above: Performed By: #### L 500.4100, L500.4050 #### [facility] [address] [place], [address] Cholesterol [Mass/Vol] 247 mg/dL High <=200 [facility] Comment on above: Result Comment: Chol esterol level, Desirable <200 mg/dL Borderline high cholesterol 200-239 mg/dL High cholesterol >=240 mg/dL Recommendations of the NCEP Adult Treatment Panel for the following risk-cutoff thresholds for the [place] population. Performed By: #### L 500.4100, L500.4050 #### [facility] [address] [place], [address] Cholesterol in HDL [Mass/Vol] 49 mg/dL Normal [facility] Comment on above: Result Comment: Bonnie onal Cholesterol Education Program (NCEP) guidelines: <40 mg/dL: Low HDL-cholesterol (major risk factor for CHD) >= 60 mg/dL: High HDL-cholesterol (negative risk factor for CHD) HDL-cholesterol is affected by a number of factors, e.g. smoking, exercise, hormones, sex and age. Performed By: #### L 500.4100, L500.4050 #### [facility] [address] [place], [address] Cholesterol in LDL [Mass/Vol] 169 mg/dL Normal [facility] Comment on above: Result Comment: Bord bfvkdy=988-928 mg/dL Higher Tvxy=295 mg/dL or greater Performed By: #### L 500.4100, L500.4050 #### [facility] [address] [place], [address] Cholesterol in VLDL [Mass/Vol] 29 mg/dL Normal 5-40 [facility] Comment on above: Performed By: #### L 500.4100, L500.4050 #### [facility] [address] [place], [address] Triglyceride [Mass/Vol] 144 mg/dL Normal [facility] Comment on above: Result Comment: The drugs N-Acetylcysteine and Metamizole may falsely depress this assay. Normal range: <150 mg/dL Borderline High: 150-199 mg/dL High: 200-499 mg/dL Very High: >500 mg/dL Performed By: #### L 500.4100, L500.4050 #### [facility] [address] [place], [address] Potassium measurement (mass/ volume)Ordered By: Bob Marcano on 11-26-2024 Potassium (Unsp spec) [Mass/Vol] 4.6 mmol/L 3.3-5.1 [facility] Screening total cholesterol/ high density lipoprotein (HDL) cholesterol ratioOrdered By: Bob Marcano on 11-26-2024 Cholesterol.total/Sandra sterol in HDL [Mass ratio] 5.01 {ratio} [facility] Serum creatinine measurement (mass/volume)Ordered By: Bob Marcano on 11-26-2024 Creatinine [Mass/Vol] 0.80 mg/dL 0.70-1.20 [facility] Serum globulin measurementOr dered By: Bob Marcano on 11-26-2024 Globulin (S) [Mass/Vol] 3.6 g/dL 2.2-4.2 [facility] Serum glucose measurement (m ass/volume)Ordered By: Bob Marcano on 11-26-2024 Glucose [Mass/Vol] 99 mg/dL 70-99 [facility] Serum or plasma alanine stearns otransferase (ALT) measurementOrdered By: Bob Marcano on 11-26-2024 ALT [Catalytic activity/Vol] 34 U/L <35 [facility] Serum or plasma albumin janette urement (mass/volume)Ordered By: Bob Marcano on 11-26-2024 Albumin [Mass/Vol] 4.4 g/dL 3.5-5.0 [facility] Serum or plasma albumin/glob ulin mass ratioOrdered By: Bob Marcano on 11-26-2024 Albumin/Globulin [Mass ratio] 1.2 {ratio} 0.9-2.4 [facility] Serum or plasma alkaline cholo sphatase measurementOrdered By: Bob Marcano on 11-26-2024 ALP [Catalytic activity/Vol] 77 U/L 35-104 [facility] Serum or plasma calcium janette urement (mass/volume)Ordered By: Bob Marcano on 11-26-2024 Calcium [Mass/Vol] 9.6 mg/dL 7.6-11.0 [facility] Serum or plasma cholesterol in HDL measurement (mass/volume)Ordered By: Bob Marcano on 11-26-2024 Cholesterol in HDL [Mass/Vol] 49 mg/dL >40 [facility] Comment on above: National Cholesterol Education Program (NCEP) guidelines:<40 mg/dL: Low HDL-cholesterol (major risk factor for CHD)>= 60 mg/dL: High HDL-cholesterol (negative risk factor for CHD)HDL-cholesterol is affected by a number of factors, e.g. smoking, exercise, hormones, sex and age. Serum or plasma cholesterol measurement (mass/volume)Ordered By: Bob Marcano on 11-26-2024 Cholesterol [Mass/Vol] 247 mg/dL High <201 [facility] Comment on above: Cholesterol level, D esirable <200 mg/dLBorderline high cholesterol 200-239 mg/dLHigh cholesterol >=240 mg/dLRecommendations of the NCEP Adult Treatment Panel for the following risk-cutoff thresholds for the [place] population. Serum or plasma urea nitroge n measurement (mass/volume)Ordered By: Bob Marcano on 11-26-2024 Urea nitrogen [Mass/Vol] 14 mg/dL 4-19 [facility] Sodium levelOrdered By: Erick Marcano on 11-26-2024 Sodium [Moles/Vol] 140 mmol/L 133-145 [facility] Total proteinOrdered By: Fabby Marcano on 11-26-2024 Protein [Mass/Vol] 8.0 g/dL 5.9-8.4 [facility] Triglycerides measurementOrd ered By: Bob Marcano on 11-26-2024 Triglyceride [Mass/Vol] 144 mg/dL <199 [facility] Comment on above: The drugs N-Acetylcy steine and Metamizole may falsely depress this assay. Normal range: <150 mg/dLBorderline High: 150-199 mg/dLHigh: 200-499 mg/dLVery High: >500 mg/dL SCRN MAMM (CAD)W/JASMYN BILATo n 06-26-2024 SCRN MAMM (CAD)W/JASMYN BILAT [facility] Imaging Services [address] [place], [place] [address] SCRN MAMM (CAD)W/JASMYN BILAT MR#: [id number] Acct: [id number] Name: JESSICA AVINA Rep #: [id number] : 1980 F 44 From: Isauro byrne MD PCP: Dr. Bob Marcano, Status: [facility] Study: SCRN MAMM (CAD)W/JASMYN BILAT Date of Exam: 11/14 Exam# [id number] Ordering Dr: Bob Marcano DO -[id number] MAMMOGRAPHY - BILATERAL SCREENING REASON FOR [...] delay biopsy of a clinically suspicious abnormality. [id number] Electronically Signed: Isauro Maradiaga MD at 10:58 EST , CC: Dr. Bob Marcano, Aerosol Supervisor: Signed Normal [facility] Absolute lymphocyte countOrd ered By: Kt Lee on 11-09-2022 Lymphocytes Auto (Unsp spec) [#/Vol] 2.90 10*3/uL 0.83-4.51 [facility] Basophil percentageOrdered B y: Kt Lee on 11-09-2022 Basophils/100 WBC (Bld) 0.5 % 0-1 [facility] Bilirubin [Mass/Vol] 0.70 mg/dL 0.20-1.00 [facility] Comment on above: For patients on eltr ombopag therapy, use of Dimension [place] TBIL is not recommended. Chloride [Moles/Vol] 105 mmol/L 98-107 [facility] Cholesterol [Mass/Vol] 224 mg/dL <200 [facility] Comment on above: <200 mg/dL Desirable 200-240 mg/dL Borderline >240 mg/dL High Risk Eosinophils/100 WBC (Bld) 6.6 % 0-5 [facility] Glucose [Mass/Vol] 89 mg/dL 74-106 [facility] Neutrophils (Bld) [#/Vol] 4.2 10*3/uL 2.0-7.7 [facility] Neutrophils/100 WBC (Bld) 50.5 % 47-70 [facility] Potassium [Moles/Vol] 3.6 mmol/L 3.5-5.1 [facility] Protein [Mass/Vol] 7.9 g/dL 6.4-8.2 [facility] Sodium [Moles/Vol] 135 mmol/L 136-145 [facility] Triglyceride [Mass/Vol] 213 mg/dL <199 [facility] Comment on above: The drugs N-Acetylcy steine and Metamizole may falsely depress this assay.Serum Triglycerides Reference Interval Normal <150 mg/dL Borderline high 150 - 199 mg/dL High 200 - 499 mg/dL Very High > or = 500 mg/dL WBC (Bld) [#/Vol] 8.2 10*3/uL 4.4-11.0 [facility] Blood erythrocytes count (nu mber/volume)Ordered By: Kt Lee on 11-09-2022 RBC (Bld) [#/Vol] 4.87 10*6/uL 4.2-5.4 [facility] Blood hemoglobin measurement (mass/volume)Ordered By: Kt Lee on 11-09-2022 Hemoglobin (Bld) [Mass/Vol] 13.8 g/dL 12.0-15.0 [facility] Blood lymphocytes/100 leukoc ytesOrdered By: Kt Lee on 11-09-2022 Lymphocytes/100 WBC (Bld) 35.2 % 19-41 [facility] Blood monocytes/100 leukocyt esOrdered By: Kt Lee on 11-09-2022 Monocytes/100 WBC (Bld) 7.0 % 0-10 [facility] Blood platelet mean volumeOr dered By: Kt Lee on 11-09-2022 Platelet mean volume (Bld) [Entitic vol] 11.0 fL 6.2-12.0 [facility] Determination of erythrocyte mean corpuscular volume (MCV)Ordered By: Kt Lee on 11-09-2022 MCV (RBC) [Entitic vol] 83.8 fL 81-99 [facility] Hematocrit Auto (Bld) [Volum e fraction]Ordered By: Kt Lee on 11-09-2022 Hematocrit (Bld) [Volume fraction] 40.8 % 37-47 [facility] Laboratory - Chemistry and C hemistry - challengeOrdered By: Kt Lee on 11-09-2022 ALP [Catalytic activity/Vol] 79 U/L 45-117 [facility] ALT [Catalytic activity/Vol] 71 U/L 13-56 [facility] CO2 [Moles/Vol] 27.0 mmol/L 21.0-32.0 [facility] Globulin (S) [Mass/Vol] 4.1 g/dL 2.2-4.2 [facility] Urea nitrogen/Creatinine [Mass ratio] 16.4 mg/mg 10-20 [facility] - Hematology and Cell countsOrdered By: Kt Lee on 11-09-2022 Erythrocyte distribution width (RBC) [Entitic vol] 41.9 fL 35.1-43.9 [facility] Erythrocyte distribution width (RBC) [Ratio] 13.7 % 11.6-14.6 [facility] Immature granulocytes/100 WBC (Bld) 0.200 % 0.0-0.9 [facility] Comment on above: IG% - Immature Granu locytes (promyelocytes, myelocytes and metamyelocytes) > 1% indicates that a LEFT SHIFT is Present. MCH (RBC) [Entitic mass] 28.3 pg 27.0-32.0 [facility] Nucleated RBC/100 WBC (Bld) [Ratio] 0 % 0-5 [facility] MCHC Auto (RBC) [Mass/Vol]Or dered By: Kt Lee on 11-09-2022 MCHC (RBC) [Mass/Vol] 33.8 g/dL 32-36 [facility] No Panel InformationOrdered By: Kt Lee on 11-09-2022 Estimated GFR (MDRD) Amer 112 mL/min >60 [facility] Comment on above: GFR Calc Estimated GFR (MDRD) Non-Af Amer 93 mL/min >60 [facility] Comment on above: Non- GFR Calc Thyroid Stimulating Hormone (TSH) 1.41 uIU/mL 0.358-3.74 [facility] Platelets bldOrdered By: Zully Lee on 11-09-2022 Platelets (Bld) [#/Vol] 268 10*3/uL 150-450 [facility] Serum or plasma albumin janette urement (mass/volume)Ordered By: Kt Lee on 11-09-2022 Albumin [Mass/Vol] 3.8 g/dL 3.2-5.0 [facility] Serum or plasma albumin/glob ulin mass ratioOrdered By: Kt Lee on 11-09-2022 Albumin/Globulin [Mass ratio] 0.9 {ratio} 0.9-2.4 [facility] Serum or plasma calcium janette urement (mass/volume)Ordered By: Kt Lee on 11-09-2022 Calcium [Mass/Vol] 9.0 mg/dL 8.5-10.1 [facility] Serum or plasma cholesterol in HDL measurement (mass/volume)Ordered By: Kt Lee on 11-09-2022 Cholesterol in HDL [Mass/Vol] 41 mg/dL >40 [facility] Comment on above: The drugs N-Acetylcy steine and Metamizole may falsely depress this assay. Reference Range HDL <40 mg/dL Low HDL Cholesterol HDL >or= 60 mg/dL High HDL Cholesterol Serum or plasma cholesterol in VLDL measurement (mass/volume)Ordered By: Kt Lee on 11-09-2022 Cholesterol in VLDL [Mass/Vol] 43 mg/dL 5-40 [facility] Serum or plasma creatinine m easurement (mass/volume)Ordered By: Kt Lee on 11-09-2022 Creatinine [Mass/Vol] 0.73 mg/dL 0.55-1.02 [facility] Comment on above: The validity of the calculated GFR & GFRAA in patients over 70 years has not been determined. Clinical correlation is essential. Serum or plasma low density lipoprotein (LDL) cholesterol measurement (mass/volume)Ordered By: Kt Lee on 11-09-2022 Cholesterol in LDL [Mass/Vol] 140 mg/dL 0-130 [facility] Serum or plasma urea nitroge n measurement (mass/volume)Ordered By: Kt Lee on 11-09-2022 Urea nitrogen [Mass/Vol] 12 mg/dL 7-18 [facility] Thin prep Papanicolaou smear with manual screeningOrdered By: Kt Lee on 11-09-2022 Thin prep Papanicolaou smear with manual screening 46 U/L 15-37 [facility] Thin prep Papanicolaou smear with manual screening 3 5-15 [facility] Vital Signs Date Time Vital Sign Value Performing Clinician Faci lity 11-26-2024 09:02-0400 Body height 160.[address] Bob Marcano DO Work Phone: [facility] 11-26-2024 09:02-0400 Body mass index (BMI) [Ratio] 42.5 kg/m2 Dr. Bob Mracano DO Work Phone: [facility] 11-26-2024 09:02-0400 Body temperature 96.7 [degF] Dr. Bob Marcano DO Work Phone: [facility] 11-26-2024 09:02-0400 Body weight 109.[address] Bob Marcano DO Work Phone: [facility] 11-26-2024 09:02-0400 Diastolic blood pressure 82 mm[Hg] Dr. Bob Marcano DO Work Phone: [facility] 11-26-2024 09:02-0400 Heart rate 98 /min Dr. Bob Marcano DO Work Phone: [facility] 11-26-2024 09:02-0400 Respiratory rate 16 /min Dr. Bob Marcano DO Work Phone: [facility] 11-26-2024 09:02-0400 SaO2% (BldA) [Mass fraction] 98 % Dr. Bob Marcano DO Work Phone: [facility] 11-26-2024 09:02-0400 Systolic blood pressure 140 mm[Hg] Dr. Bob Marcano DO Work Phone: [facility] 05-30-2023 15:28-0500 Body height 160.[address] Bob Marcano Work Phone: [facility] 05-30-2023 15:28-0500 Body mass index (BMI) [Ratio] 41.8 kg/m2 Dr. Bob Marcano Work Phone: [facility] 05-30-2023 15:28-0500 Body temperature 99.2 [degF] Dr. Bob Marcano Work Phone: [facility] 05-30-2023 15:28-0500 Body weight 107.[address] Bob Marcano Work Phone: [facility] 05-30-2023 15:28-0500 Diastolic blood pressure 98 mm[Hg] Dr. Bob Marcano Work Phone: [facility] 05-30-2023 15:28-0500 Heart rate 97 /min Dr. Bob Marcano Work Phone: [facility] 05-30-2023 15:28-0500 Respiratory rate 16 /min Dr. Bob Marcano Work Phone: [facility] 05-30-2023 15:28-0500 SaO2% (BldA) [Mass fraction] 98 % Dr. Bob Marcano Work Phone: [facility] 05-30-2023 15:28-0500 Systolic blood pressure 144 mm[Hg] Dr. Bob Marcano Work Phone: [facility] 11-09-2022 15:01-0400 Body height 160.[address] Bob Marcano Work Phone: [facility] 11-09-2022 15:01-0400 Body mass index (BMI) [Ratio] 44.2 kg/m2 Dr. Bob Marcano Work Phone: [facility] 11-09-2022 15:01-0400 Body temperature 98.5 [degF] Dr. Bob Marcano Work Phone: [facility] 11-09-2022 15:01-0400 Body weight 113.[address] Bob Marcano Work Phone: [facility] 11-09-2022 15:01-0400 Diastolic blood pressure 94 mm[Hg] Dr. Bob Marcano Work Phone: [facility] 11-09-2022 15:01-0400 Heart rate 92 /min Dr. Bob Marcano Work Phone: [facility] 11-09-2022 15:01-0400 Respiratory rate 12 /min Dr. Bob Marcano Work Phone: [facility] 11-09-2022 15:01-0400 SaO2% (BldA) [Mass fraction] 97 % Dr. Bob Marcano Work Phone: [facility] 11-09-2022 15: Systolic blood pressure 144 mm[Hg] Dr. Bob Marcano Work Phone: [facility] Encounters Encounter Date Encounter Type Care Provider Facility Start: 05-27-2025 End: 05-27-2025 ambulatory Bob Marcano Facility:[facility] Start: 05-23-2025 ambulatory Bob Marcano Facilit y:[facility] Start: 11-26-2024 End: 11-26-[address] Bob Ferrer DO -[facility] Work Phone: Start: 11-26-2024 End: 11-26-[address] Bob Marcano DO Work Phone: [facility] Work Phone: Start: 11-26-2024 End: 11-26-2024 ambulatory Bob Marcano Facility:[facility] Start: 06-26-2024 End: 06-26-2024 ambulatory Bob Marcano Facility:[facility] Start: 05-28-[address] Bob Marcano DO Work Phone: [facility] Start: 06-14-2023 End: 06-14-[address] Bob Marcano Work Phone: [facility] Work Phone: Start: 06-14-2023 End: 06-14-[address] Bob Marcano Work Phone: [facility] Work Phone: Start: 05-30-2023 End: 05-30-[address] Bob Marcano Work Phone: [facility] Work Phone: Start: 11-09-2022 End: 11-09-[address] Bob Marcano Work Phone: [facility] Work Phone: Start: 11-09-[address] Zuly Marcano Work Phone: [facility] Start: 11-09-2022 End: 11-09-[address] Bob Marcano Work Phone: [facility] Procedures Date Procedure Procedure Detail Performing Clinician Start: 06-14-2023 Screening mammography Zuly Marcano Work Phone: Plan of Treatment Date Care Activity Detail Author Start: 11-26-2024 Patient referral [facility] Work Phone: Patient referral [facility] Work Phone: Payers Date Payer Category Payer Self-pay [id number] 2024 Unknown [id number] 2024 Unknown [id number] Private Health Insurance 000 [id number] Unknown [employer] [id number] Unknown [facility] [id number] Unknown [id number] Unknown [id number] Unknown [id number] Unknown [id number] Unknown [id number] Social History Date Type Detail Facility Start: 11-09-2022 End: 05-30-2023 Tobacco smoking status NHIS Unknown if ever smoked [facility] Start: 1980 Sex Assigned At Female [facility] Start: 05-30-2023 Tobacco smoking stat us NHIS Never smoked tobacco (finding) [facility] Evaluation note 11-26-2024 Note Date & Type Note Facility 11-26-2024 Evaluation note Diagnosis Onset Date Resolution Dyslipidemia acute November 26 8:59am Family history of colon cancer requiring screening colonoscopy acute November 26 8:59am Depression chronic November 26, 2024 8:59am HTN (hypertension) chronic November 8:59am [facility] Work Phone: Evaluation note Note Date & Type Note Facility Evaluation note Diagnosis Onset Date Depression chronic [facility] Work Phone: Evaluation note Note Date & Type Note Facility Evaluation note Diagnosis Onset Date Depression chronic HTN (hypertension) chronic [facility] Work Phone: Hospital Discharge instructions Note Date & Type Note Facility Hospital Discharge instructions Ambulatory OrdersGeneral Surgery Location: None Selected [facility] Work Phone: Chief Complaint and Reason for [...] No November 02, 2015 8:54am Power of Digital Photographer No November 01 8:54am Advance Directive Response Recorded Date/ Time Advance Directives No November 01 016 7:54am Living Will No November 02, 2015 7:54am Power of Digital Photographer No November 01 16 7:54am Advance Directive Response Recorded Date/ Time Living Will No November 02, 2015 8:54am Do you have a Healthcare Power of Digital Photographer? No November 02, 2015 8:54am Advance Directives [...] Provider, Referr ing Provider Active [facility] Attending Provider Active Team Status: Inactive Member Role Status Dates Dr. Bob Marcano DO Primary Care Provider Active [facility] Attending Provider, Referring Prov ider Active Team [...] section and content) DATE CREATED AUTHOR 05/28/2025 [facility] FOR RECORDS PERTAINING TO PATIENTS WHO [...] BE BASED ON THE PRIMARY CLINICAL RECORDS. [facility]. provides no warranty or guarantee of the accuracy or completeness of information in this document.
--- NOTE | 2025-07-21 07:25 | NM_ITS ---
PROCEDURE: BONE SCAN WHOLE BODY 07/21/2025 REASON FOR EXAM: STAGING RECTAL CA TECHNIQUE: Procedure Code: NMBO Modality: NM Procedure: BONE SCAN WHOLE BODY Whole-body bone scan with anterior and posterior imaging. RADIOPHARMACEUTICAL: 25.6 mCi Technetium-99m MDP IV COMPARISON: None provided. FINDINGS: No findings are seen to suggest the presence of osseous metastatic disease. No substantial degenerative changes are noted. NM/Bone Scan Whole Body IMPRESSION: No scintigraphic evidence of osseous metastatic disease. Reading Location: [place] [address]
== END | disposition home or self-care (01) ==
PROVIDERS: PCP Family Medicine; Referring Provider Internal Medicine Hematology & Oncology; Visit Provider Internal Medicine Hematology & Oncology
DX: C20 Malignant neoplasm of rectum (principal); R59.0 Localized enlarged lymph nodes; R91.1 Solitary pulmonary nodule
CPT/HCPCS: 78306; A9503